=== PATIENT | female | born 1980 | race Caucasian/White ===

== ENCOUNTER 2017-12-04 17:45 | Inpatient (IN) | payer OTHER ==
[~2017-12-04] VITALS: Ht 165.1 cm; Wt 82.6 kg
--- NOTE | 2017-12-04 19:50 | ED GENERAL ADULT ---
See Addendum History of Present Illness General Chief Complaint: ETOH/Drug Related Complaint Stated Complaint: INTOXICATED Source: patient, family Exam Limitations: intoxication Vital Signs & Intake/Output Vital Signs & Intake/Output Vital Signs Date Time Temp Pulse Resp B/P B/P Pulse O2 O2 Flow FiO2 Mean Ox Delivery Rate 12/05 1054 98.0 102 20 130/73 12/05 1014 98.0 98 20 110/68 12/05 1014 98.0 98 20 110/68 95 Room Air 12/05 0808 98.2 102 20 116/76 12/05 0808 98.2 102 20 116/76 95 Room Air 12/05 0620 97.7 94 16 102/69 93 Room Air 12/05 0600 97.7 94 16 102/66 12/05 0400 98.7 96 18 102/68 94 Room Air 12/05 0200 97.9 99 20 101/58 12/05 0200 97.9 99 18 101/58 96 Room Air 12/05 0000 98.0 95 18 110/64 04 0000 98.0 95 18 110/64 99 Room Air 12/04 2258 95 18 104/64 99 Room Air 12/04 1829 98.2 104 16 134/80 98 Room Air Room Air ED Intake and Output 12/05 0000 12/04 1200 Intake Total 0 Output Total Balance 0 Intake, Oral 0 Allergies Coded Allergies: amoxicillin (Severe, HIVES 12/04/17) clonidine (Severe, SHORTNESS OF BREATH 12/04/17) esomeprazole (From NEXIUM) (Severe, HIVES 12/04/17) ketorolac (From TORADOL) (Severe, HIVES 12/04/17) adhesive (RASH 12/04/17) dicyclomine (From BENTYL) (HIVES 12/04/17) codeine (NAUSEA 12/04/17) doxycycline (NAUSEA 12/04/17) Triage Note: PT TO TRIAGE FOR ALCOHOL DETOX, PT STATES HER LAST DRINK WAS 2 DAYS PRIOR. PT ALSO COMPLAINS OF PAIN TO LEFT RIBS AND WAS DX WITH RIB FRACTURES 2 DAYS PRIOR. DENIES SI/HI. Triage Nurses Notes Reviewed? yes : No Patient currently breastfeeds: No HPI: 37 yo woman h/o alcohol abuse disorder h/o left rib injury after a fall 4-5 days ago, presents seeking etoh detox and also with continued left rib cage pain. She notes that she drinks a pint a day, has relapsed in recent weeks, had a seizure in jul 2016 per her father. Per her father, "She was watching the neighbor's dog... and that's where she was sneaking alcohol." She notes that she fell 4-5 days ago, landed on her left side, went to [facility], where she had ct scans. "They didn't tell me much." She was discharged with ativan. She notes continued pain and bruising on the left side of her ribs and left abdomen. She notes no chest pain, diarrhea, chills, dyspnea, diarrhea. She notes intermittent nausea and vomiting. "I haven't drunk anything in days. (Ambrose SOSA,Rafael Man) Past History Travel History Traveled to [place] past 21 day No Medical History Any Pertinent Medical History? 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 No (Ambrose SOSA,Rafael Man) Review of Systems Review of Systems Constitutional: Reports: no symptoms. EENTM: Reports: no symptoms. Respiratory: Reports: no symptoms. Cardiovascular: Reports: no symptoms. GI: Reports: no symptoms. Genitourinary: Reports: no symptoms. Musculoskeletal: Reports: no symptoms. Skin: Reports: no symptoms. Neurological/Psychological: Reports: no symptoms. Hematologic/Endocrine: Reports: no symptoms. Immunologic/Allergic: Reports: no symptoms. All Other Systems: Reviewed and Negative (Ambrose SOSA,Rafael Man) Physical Exam Physical Exam General Appearance: well developed/nourished, mild distress Head: atraumatic, normal appearance Eyes: Bilateral: normal appearance. Ears, Nose, Throat: normal pharynx, normal ENT inspection Neck: normal inspection Respiratory: normal breath sounds, left sided chest wall tenderness with mild ecchymosis, no crepitus. Cardiovascular: regular rate/rhythm Gastrointestinal: left sided mild tenderness to palpation with bruising. no rebound. no guarding. Back: normal inspection, normal range of motion Extremities: normal inspection, normal capillary refill Neurologic/Psych: no motor/sensory deficits, awake, alert, oriented x 3 Skin: intact, normal color, warm/dry Core Measures ACS in differential dx? No CVA/TIA Diagnosis: No Sepsis Present: No Sepsis Focused Exam Completed? No (Ambrose SOSA,Rafael Man) Progress Differential Diagnoses I considered the following diagnoses in my evaluation of the patient: left sided rib injury vs fx vs splenic injury also with alcohol intoxication vs detox. Plan of Care: Orders Procedure Date/time Status Regular Diet 12/05 B Active Pathway - chart 12/05 0810 Active CASE MANAGEMENT CONSULT 12/04 2346 Active CIWA 12/04 234 Active Add-on Test (ER Only) 12/04 2158 Active HUMAN BETA HCG SCREEN 12/05 2119 Complete CASE MANAGEMENT CONSULT 12/04 1950 Active URINE DRUG SCREEN FOR ER ONLY 12/04 1950 Complete LIPASE 12/04 1950 Complete HEPATIC FUNCTION PANEL 12/04 1950 Complete ETHANOL 12/04 1950 Complete CBC WITHOUT DIFFERENTIAL 12/04 1950 Complete BASIC METABOLIC PANEL 12/04 1950 Complete AMYLASE 12/04 1950 Complete EKG 12/04 1950 Active Current Medications Sig/Jarret Start time Last Medication Dose Stop Time Status Admin Lorazepam 2 MG Q2P PRN 12/05 0815 UNVr (Ativan) Lorazepam 1 MG Q2P PRN 12/05 0815 UNVr 12/05 (Ativan) 1055 Gabapentin 300 MG Q8 12/05 0600 UNVr 12/05 (Neurontin) 0600 Acetaminophen 650 MG Q4P PRN 12/04 2345 AC (Tylenol) Ondansetron HCl 4 MG Q4P PRN 12/04 2345 AC (Zofran) Promethazine HCl 25 MG ONCE ONE 12/04 2100 CAN (Phenergen) 12/04 210 Laboratory Tests 12/05/17 0102: Urine Opiates Screen 123, Methadone Screen 67, Barbiturate Screen < 60, Ur Phencyclidine Scrn < 6.00, Amphetamines Screen < 100, U Benzodiazepines Scrn > 800 H, Urine Cocaine Screen 55, Urine Cannabis Screen < 5.00 12/04/172158: Total Beta HCG Cancelled 12/04/172119: Anion Gap 19 H, Estimated GFR > 60, BUN/Creatinine Ratio 16.3, Glucose 75, Calcium 8.6, Total Bilirubin 0.6, Direct Bilirubin 0.5 H, AST 138 H, ALT 172 H, Alkaline Phosphatase 253 H, Total Protein 6.8, Albumin 4.2, Amylase 65, Lipase 133, Total Beta HCG NEGATIVE, CBC w Diff NO MAN DIFF REQ, RBC 4.74, MCV 91.8, MCH 30.1, MCHC 32.8 L, RDW 17.7 H, MPV 8.0, Gran % 55.0, Lymphocytes % 40.5, Monocytes % 3.5, Eosinophils % 0.6, Basophils % 0.4, Absolute Granulocytes 3.7, Absolute Lymphocytes 2.8, Absolute Monocytes 0.2, Absolute Eosinophils 0, Absolute Basophils 0, Serum Alcohol 251.0 12/04/172108: Total Beta HCG Cancelled Diagnostic Imaging: Viewed by Me: CT Scan. Discussed w/RAD: CT Scan. Radiology Impression: PATIENT: MARGARET MAYEN PRESENT AGE: 37 PATIENT ACCOUNT NO: [id number] : 79 LOCATION: [facility] ORDERING PHYSICIAN: Rafael Boggs MD SERVICE DATE: 12/04/17 EXAM TYPE: CAT - CT CERV SPINE WO IV CONTRAST; CT HEAD WO IV CONTRAST EXAMINATION: NONCONTRAST HEAD CT NONCONTRAST CERVICAL SPINE CT INDICATION INFORMATION: Head injury COMPARISON: None TECHNIQUE: Separate noncontrast CT examinations of the head and cervical spine were performed. Coronal and sagittal images were created for each examination at the technologist workstation. DLP: 903 mGy-cm FINDINGS: Head: There is no evidence of acute intracranial hemorrhage or territorial infarction. No abnormal mass effect or midline shift is seen. Herron to white matter differentiation is well preserved. No extra-axial fluid collections are identified. No hydrocephalus. No significant volume loss. There is no abnormal attenuation within the brain parenchyma. The osseous structures and soft tissues are normal. The mastoid air cells and visualized portions of the paranasal sinuses are well aerated. Cervical spine: Stranding of the normal cervical lordosis. There is otherwise anatomic alignment of the vertebral bodies and posterior elements. The atlantoaxial and atlantooccipital articulations are intact. Vertebral body heights and intervertebral disc spaces are maintained. No evidence of acute fracture. No prevertebral soft tissue swelling. Visualized portions of the lung apices are unremarkable. The thyroid gland is unremarkable. IMPRESSION: 1. No acute intracranial findings. 2. No acute fracture or malalignment of the cervical spine. DICTATED BY: Freddy Owen MD DATE/TIME DICTATED:12/04/172301 INSURANCE FOLLOW UP SPECIALIST:RAJI DATE/TIME TRANSCRIBED:2301 CONFIDENTIAL, DO NOT COPY WITHOUT APPROPRIATE AUTHORIZATION. < Electronically signed in Other Vendor System> SIGNED BY: Freddy Owen MD 12/04/170, PATIENT: MARGARET MAYEN PRESENT AGE: 37 PATIENT ACCOUNT NO: [id number] : 79 LOCATION: [facility] ORDERING PHYSICIAN: Rafael Boggs MD SERVICE DATE: 12/04/17 EXAM TYPE: CAT - CT ABD & PELVIS W IV CONTRAST; CT CHEST W IV CONTRAST EXAMINATION: CT CHEST, ABDOMEN AND PELVIS WITH CONTRAST CLINICAL INFORMATION: Injury. Left rib pain. COMPARISON: None. TECHNIQUE: Multidetector volumetric CT imaging of the chest, abdomen and pelvis was obtained after the administration of 50 mL of intravenous Ultravist without immediate adverse reactions. DLP: 744.74 mGy-cm. FINDINGS: CT CHEST: Lungs: The lungs are clear with no evidence of inflammation or nodules. Mediastinum: The mediastinum is normal. Pleura: There is no pleural effusion. No pleural mass or thickening. Axilla: No lymphadenopathy. CT ABDOMEN AND PELVIS: LIVER, GALLBLADDER, AND BILIARY TREE: There is diffuse fatty change of liver. There is no focal liver lesion or intrahepatic bile duct dilatation. Status post cholecystectomy. PANCREAS: No acute change of the pancreas. No mass. No pancreatic duct dilatation. SPLEEN: Spleen normal in size and contour. No focal lesion. ADRENAL GLANDS: Adrenal glands are normal in size. No focal mass. KIDNEYS AND URETERS: The kidneys are normal in size, shape, and attenuation. No hydronephrosis, hydroureter, or calculi seen. No perinephric stranding. BLADDER: Unremarkable. GASTROINTESTINAL TRACT: Status post gastric surgery. Status post appendectomy. No acute change of the bowel. No bowel obstruction. No bowel wall thickening or edema. Moderate volume of stool throughout the colon. The small bowel loops are normal. MESENTERY: No focal inflammation. No free fluid. No free air. ABDOMINAL WALL: Small fat-containing umbilical hernia. There is subcutaneous air in the left flank, axial image 77 (2). There is no radiopaque foreign body. LYMPH NODES: Normal. VASCULAR: Is atherosclerotic vascular calcifications of aorta and iliac vessels without aneurysm. PELVIC VISCERA: Unremarkable. OSSEOUS STRUCTURES: No fracture. Chest wall abdominal wall is unremarkable. IMPRESSION: There is a collection of subcutaneous air at the left flank. There is no rib fracture. No acute abnormality of the chest, abdomen or pelvis. DICTATED BY: Marky Stevens MD DATE/TIME DICTATED:12/04/172302 INSURANCE FOLLOW UP SPECIALIST:RAJI DATE/TIME TRANSCRIBED:12/04/172302 CONFIDENTIAL, DO NOT COPY WITHOUT APPROPRIATE AUTHORIZATION. <Electronically signed in Other Vendor System> SIGNED BY: Marky Stevens MD 12/04/17 7100 Initial ED EKG: sinus tach, no acute changes Hand-Off Endorsed To: Figueroa Iraheta MD Endorsed Time: 0700 Pending: consult, labs (Ambrose SOSA,Rafael Man) Comments: 12/05/2017 8:08:59 AM patient signed out to me by Dr. Boggs at shift change management consultant. Patient had a documented CIWA score of 8 and not only has a history of withdrawal seizures but also show signs of alcoholic hepatitis. I Feel the patient now requires admission for alcohol withdrawal treatment. 12/05/2017 11:27:26 AM Patient signed out to Dr. Rivera. Insurance preauthorization pending. (Myrtle SOSA,Figueroa Perales) Departure Departure Disposition: STILL A PATIENT Condition: Stable Referrals: Patient Has No Primary Care Dr (PCP/Family) Departure Forms: Customer Survey General Discharge Information Comments 12/05/17, 0:10... pt resting comfortably... no acute internal injuries on ct scan.... pt to be evaluated by case management in AM. (Ambrose SOSA,Rafael Man) Departure Clinical Impression Primary Impression: Alcohol withdrawal syndrome Secondary Impressions: Alcohol intoxication Qualifiers: Complication of substance-induced condition: uncomplicated Qualified Code: F10.920 - Alcohol use, unspecified with intoxication, uncomplicated Alcoholism Contusion Qualifiers: Encounter type: initial encounter Rib injury (Myrtle SOSA,Figueroa Perales) Departure Comments 12/05/17 The patient was signed out to me by Dr. Iraheta. She is pending case management approval for admission for alcohol detox. (Figueroa Rivera DO) Critical Care Note Critical Care Note Critical Care Time: non-applicable (Ambrose SOSA,Rafael Man)
[2017-12-04 21:30] LABS: ABSOLUTE BASOPHIL COUNT 0 /CUMM (0.0-0.2); ABSOLUTE EOSINOPHIL COUNT 0 /CUMM (0.0-0.7); ABSOLUTE GRANULOCYTE CT 3.7 /CUMM (1.4-6.5); ABSOLUTE LYMPH COUNT 2.8 /CUMM (1.2-3.4); ABSOLUTE MONOCYTE COUNT 0.2 /CUMM (0.10-0.60); BASOPHIL % 0.4 % (0.0-2.0); EOSINOPHIL % 0.6 % (0-5); HEMATOCRIT 43.5 % (37-47); MEAN CORPUSCULAR HGB 30.1 PG (27.0-31.0); MEAN CORPUSCULAR HGB CONC 32.8 G/DL (33.0-37.0); MEAN CORPUSCULAR VOLUME 91.8 FL (81.0-99.0); PLATELET COUNT 153 /CUMM (130-400); RBC DISTRIBUTION WIDTH 17.7 % (11.5-14.5); RED BLOOD CELL CT 4.74 /CUMM (4.20-5.40); WHITE BLOOD CELL COUNT 6.8 /CUMM (4.8-10.8)
--- NOTE | 2017-12-04 23:10 | CT SCAN REPORT ---
EXAMINATION: NONCONTRAST HEAD CT NONCONTRAST CERVICAL SPINE CT INDICATION INFORMATION: Head injury COMPARISON: None TECHNIQUE: Separate noncontrast CT examinations of the head and cervical spine were performed. Coronal and sagittal images were created for each examination at the technologist workstation. DLP: 903 mGy-cm FINDINGS: Head: There is no evidence of acute intracranial hemorrhage or territorial infarction. No abnormal mass effect or midline shift is seen. Herron to white matter differentiation is well preserved. No extra-axial fluid collections are identified. No hydrocephalus. No significant volume loss. There is no abnormal attenuation within the brain parenchyma. The osseous structures and soft tissues are normal. The mastoid air cells and visualized portions of the paranasal sinuses are well aerated. Cervical spine: Stranding of the normal cervical lordosis. There is otherwise anatomic alignment of the vertebral bodies and posterior elements. The atlantoaxial and atlantooccipital articulations are intact. Vertebral body heights and intervertebral disc spaces are maintained. No evidence of acute fracture. No prevertebral soft tissue swelling. Visualized portions of the lung apices are unremarkable. The thyroid gland is unremarkable. IMPRESSION: 1. No acute intracranial findings. 2. No acute fracture or malalignment of the cervical spine.
--- NOTE | 2017-12-04 23:15 | CT SCAN REPORT ---
EXAMINATION: CT CHEST, ABDOMEN AND PELVIS WITH CONTRAST CLINICAL INFORMATION: Injury. Left rib pain. COMPARISON: None. TECHNIQUE: Multidetector volumetric CT imaging of the chest, abdomen and pelvis was obtained after the administration of 50 mL of intravenous Ultravist without immediate adverse reactions. DLP: 744.74 mGy-cm. FINDINGS: CT CHEST: Lungs: The lungs are clear with no evidence of inflammation or nodules. Mediastinum: The mediastinum is normal. Pleura: There is no pleural effusion. No pleural mass or thickening. Axilla: No lymphadenopathy. CT ABDOMEN AND PELVIS: LIVER, GALLBLADDER, AND BILIARY TREE: There is diffuse fatty change of liver. There is no focal liver lesion or intrahepatic bile duct dilatation. Status post cholecystectomy. PANCREAS: No acute change of the pancreas. No mass. No pancreatic duct dilatation. SPLEEN: Spleen normal in size and contour. No focal lesion. ADRENAL GLANDS: Adrenal glands are normal in size. No focal mass. KIDNEYS AND URETERS: The kidneys are normal in size, shape, and attenuation. No hydronephrosis, hydroureter, or calculi seen. No perinephric stranding. BLADDER: Unremarkable. GASTROINTESTINAL TRACT: Status post gastric surgery. Status post appendectomy. No acute change of the bowel. No bowel obstruction. No bowel wall thickening or edema. Moderate volume of stool throughout the colon. The small bowel loops are normal. MESENTERY: No focal inflammation. No free fluid. No free air. ABDOMINAL WALL: Small fat-containing umbilical hernia. There is subcutaneous air in the left flank, axial image 77 (2). There is no radiopaque foreign body. LYMPH NODES: Normal. VASCULAR: Is atherosclerotic vascular calcifications of aorta and iliac vessels without aneurysm. PELVIC VISCERA: Unremarkable. OSSEOUS STRUCTURES: No fracture. Chest wall abdominal wall is unremarkable. IMPRESSION: There is a collection of subcutaneous air at the left flank. There is no rib fracture. No acute abnormality of the chest, abdomen or pelvis.
[2017-12-05] VITALS (13 sets, daily range): BP systolic 101–139; BP diastolic 58–92
--- NOTE | 2017-12-05 14:52 | History & Physical ---
Marco Larry MD,[facility] 12/05/17 1452: General Information and HPI MD Statement: I have seen and personally examined MARGARET MAYEN and documented this H&P. The patient is a 37 year old F who presented with a patient stated chief complaint of [alcohol detox]. Source of Information: patient, old records History of Present Illness: Patient is 37 yo F with PMH of alchohol abuse, alcohol related seizure, bronchitis, SVT, GERD, Mary Lou's thyroiditis, adrenal insufficiency, gastric bypass surgery presented to the ED for alcohol detox. Patient noted that she increased the amount of alcohol intact since 6 years ago. She stopped to drink about 4.5 months ago till last week that after some stressors in life, she found a bottle of favorite alcohol at home and restarted drinking alcohol. Last drink was yesterday morning and was 0.5 pint of alcohol. She usually drinks 4-5 pints of vodka daily. Her last detox was 1m ago in [facility], she also reported 10-12 episodes of seizure related to alcohol in the last 6 years. She also noted she fill full days ago when she was drunk, she had bruising all over the body, as admitted to [facility] for ribs fracture, but was then shown discharged on PO ativan since they had no alcohol detox program. Patient also reported to have several endocrine organ insufficiencies, diagnosed in 2016 after being admitted to [facility]. She follows with Dr. Sanchez (in [place]) and was recommended to follow with a Block Hacker. Allergies/Medications Allergies: Coded Allergies: amoxicillin (Severe, HIVES 12/04/17) clonidine (Severe, SHORTNESS OF BREATH 12/04/17) esomeprazole (From NEXIUM) (Severe, HIVES 12/04/17) ketorolac (From TORADOL) (Severe, HIVES 12/04/17) adhesive (RASH 12/04/17) dicyclomine (From BENTYL) (HIVES 12/04/17) codeine (NAUSEA 12/04/17) doxycycline (NAUSEA 12/04/17) Home Med list Albuterol Sulfate (Proventil Hfa) 90 MCG HFA.AER.AD 2 PUF INH Q4 PRN BREATHING (Reported) Codeine Phosphate/Guaifenesi (Guaifenesin AC Cough Syrup) 10 MG-100 MG/5 ML LIQUID 1 TSP PO 4XW COUGH (Reported) Lamotrigine (Lamotrigine Odt) 100 MG TAB.RAPDIS 1 TAB PO QHS MENTAL (Reported ) Lansoprazole (Prevacid) 30 MG CAPSULE.DR 1 CAP PO DAILY GERD (Reported) Levothyroxine Sodium 75 MCG TABLET 1 TAB PO DAILY THYROID (Reported) Montelukast Sodium 10 MG TABLET 1 TAB PO DAILY ASTHMA (Reported) Prednisone 10 MG TABLET 1 TAB PO DAILY ADRENAL (Reported) Quetiapine Fumarate (Seroquel) 100 MG TABLET 1 TAB PO QPM MENTAL HEALTH ( Reported) Tamsulosin HCl (Flomax) 0.4 MG CAP.ER.24H 1 CAP PO DAILY KIDNEY (Reported) Trazodone HCl 50 MG TABLET 1 TAB PO QPM INSOMNIA (Reported) Past History Travel History Traveled to [place] past 21 day No Medical History Neurological: NONE EENT: NONE Cardiovascular: SVT Respiratory: bronchitis Gastrointestinal: GERD Hepatic: NONE Renal: NONE Musculoskeletal: FX RIBS TO LEFT SIDE Psychiatric: alcohol dependence Endocrine: Mary Lou's thyroiditis, 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 Exam & Diagnostic Data Last 24 Hrs of Vital Signs/I&O Vital Signs Date Time Temp Pulse Resp B/P B/P Pulse O2 O2 Flow FiO2 Mean Ox Delivery Rate 12/05 1312 98.7 117 20 139/92 95 Room Air 12/05 1311 98.7 117 20 139/92 12/05 1054 98.0 102 20 130/73 12/05 1014 98.0 98 20 110/68 12/05 1014 98.0 98 20 110/68 95 Room Air 12/05 0808 98.2 102 20 116/76 12/05 0808 98.2 102 20 116/76 95 Room Air 12/05 0620 97.7 94 16 102/69 93 Room Air 12/05 0600 97.7 94 16 102/66 12/05 0400 98.7 96 18 102/68 94 Room Air 12/05 0200 97.9 99 20 101/58 12/05 0200 97.9 99 18 101/58 96 Room Air 04/17 0000 98.0 95 18 110/64 12/05 0000 98.0 95 18 110/64 99 Room Air 12/04 2258 95 18 104/64 99 Room Air 12/04 1829 98.2 104 16 134/80 98 Room Air Room Air Intake & Output 12/05 1600 12/05 0800 12/05 0000 Intake Total 600 0 Output Total Balance 600 0 Intake, IV 600 Intake, Oral 0 Physical Exam General Appearance Alert, Oriented X3, No Acute Distress, anxious Skin bruise over left chest wall Skin Temp/Moisture Exam: Warm/Dry Sepsis Skin Exam (color): Normal for Ethnicity HEENT Atraumatic Cardiovascular Normal S1, Normal S2 Abdomen Soft, No Tenderness Neurological tremor bilateral LE 4-5/5, Unstable gait, takes few steps, finger to nose normal Extremities No Edema Last 24 Hrs of Labs/Charbel: Laboratory Tests 12/05/17 0102: Urine Opiates Screen 123, Methadone Screen 67, Barbiturate Screen < 60, Ur Phencyclidine Scrn < 6.00, Amphetamines Screen < 100, U Benzodiazepines Scrn > 800 H, Urine Cocaine Screen 55, Urine Cannabis Screen < 5.00 12/04/179: Total Beta HCG Cancelled 12/04/170: Anion Gap 19 H, Estimated GFR > 60, BUN/Creatinine Ratio 16.3, Glucose 75, Calcium 8.6, Total Bilirubin 0.6, Direct Bilirubin 0.5 H, AST 138 H, ALT 172 H, Alkaline Phosphatase 253 H, Total Protein 6.8, Albumin 4.2, Amylase 65, Lipase 133, Total Beta HCG NEGATIVE, CBC w Diff NO MAN DIFF REQ, RBC 4.74, MCV 91.8, MCH 30.1, MCHC 32.8 L, RDW 17.7 H, MPV 8.0, Gran % 55.0, Lymphocytes % 40.5, Monocytes % 3.5, Eosinophils % 0.6, Basophils % 0.4, Absolute Granulocytes 3.7, Absolute Lymphocytes 2.8, Absolute Monocytes 0.2, Absolute Eosinophils 0, Absolute Basophils 0, Serum Alcohol 251.0 12/04/172108: Total Beta HCG Cancelled Assessment/Plan Assessment: Patient is 37 yo F presented for alcohol detox PMH: alchohol abuse, alcohol related seizure, bronchitis, SVT, GERD, Mary Lou's thyroiditis, adrenal insufficiency, gastric bypass surgery presented to the ED for alcohol detox. VS, Ph Ex at admission: insignificant Labs at admission: CBC insignificant, bicarb 17, AG 19, AST 138, AST 172, Alkp 253, Bdz 800, serum alcohol 251 Imagings at admission: Head CT: 1. No acute intracranial findings. 2. No acute fracture or malalignment of the cervical spine. Chest and pelvic CT: There is a collection of subcutaneous air at the left flank. There is no rib fracture. No acute abnormality of the chest, abdomen or pelvis. Patient was admitted to telemetry floor for management of following conditions: Alcohol detox Patient will be admitted to general medicine floor. -Admit to general medicine floor -CIWA protocol -Banana bag, multivitamin, thiamin -LR 125 ml/h - Ativan 2mg q4 - ativan IN PRN Transmitis Not consistant with alcohol - hepatitis panel - RUQ US Chronic medical problems: we will continiue home medication - get records from Dr Sanchez, new accounts banking representative -Get records from PCP -Continue home medication FC Diet regular DVT PPX: alps and heparin As Ranked By This Provider Problem List: 1. Alcohol intoxication Qualifiers Complication of substance-induced condition: uncomplicated Qualified Code: F10.920 - Alcohol use, unspecified with intoxication, uncomplicated 2. Alcohol withdrawal syndrome Core Measures/Misc (05/07) Acute Coronary Syndrome ACS Diagnosis: No Congestive Heart Failure Congestive Heart Failure Diagnosis No Cerebrovascular Accident CVA/TIA Diagnosis: No VTE (View Protocol) VTE Risk Factors Immobility No Mechanical VTE Prophylaxis d/t N/A MechProphylax Ordered No VTE Pharm Prophylaxis d/t NA PharmProphylax ordered Sepsis (View protocol) Sepsis Present: No Nj Marte MD 12/05/17 1638: Attending MD Review Statement Attending Statement Attending MD Statement: examined this patient, discuss w/resident/PA/CEMENT FINISHING SUPERVISOR, agreed w/resident/PA/CEMENT FINISHING SUPERVISOR, reviewed EMR data (avail), discussed with nursing, discussed with case mgmt, amended to note Attending Assessment/Plan: Patient seen and examined. Medical history as noted above. She presented to the emergency room voluntarily for alcohol detoxification. While being monitored in the emergency room she developed alcohol withdrawal symptoms for which she is being admitted for further management. She complains of being anxious. Denies any pain. Denies any nausea vomiting at present. She reports that she has not voided since being in the emergency room yesterday. Denies abdominal pain. On examination she is alert oriented 3. She is mildly anxious. She is mildly tremulous. She does have a bruising in the left upper quadrant of the abdomen. No tenderness. Bowel sounds are normal. She has no peripheral edema. Laboratory data noted. She does have transaminitis however pattern is not consistent with alcoholic hepatitis. Problems: 1. Alcohol withdrawal syndrome 2. Transaminitis 3. History of adrenal insufficiency. Plan: -Admit to inpatient General medical service. -Hydrate with lactated Ringer's at 1.5 cc an hour. -Repeat serum chemistry to monitor potassium and magnesium level tomorrow. -Repeat CBCs in a.m. if there is a change in her clinical status. -Check viral hepatitis panel and obtain right upper quadrant sonogram. -Continue her chronic steroid regimen. Will hold off administer stress dose for now. -DVT prophylaxis. Lucas Gerber 12/06/17 0659: Resident Review Statement Resident Statement: examined this patient, discussed with internet webmaster, agreed with internet webmaster, discussed with family, reviewed EMR data (avail), reviewed images, amended to note Other Findings: 37 year old woman here for alcohol detox. Admit to general medicine floor. ALT greater than AST, findings not consistent with alcoholic hepatitis, but definitely in line with nonalcoholic steatotic hepatitis. Findings confirmed with ultrasound abdomen. Check viral hepatitis panel. For alcohol detox, and Ativan [id number] and when necessary per CIWA. Social work consult. Gentle fluid hydration. Continue low-dose steroids for adrenal insufficiency, see close hemodynamic monitoring. Please confirm dose of her steroids (hydrocortisone). Lovenox for DVT prophylaxis. Heart healthy diet. Full code.
--- NOTE | 2017-12-05 16:21 | Admission Certification ---
Admission Certification Certification Statement - As attending physician, I certify that at the time of - admission, based on clinical presentation, severity of - symptoms, need for further diagnostic testing and - therapeutic interventions, and risk of adverse outcomes - without in-hospital treatment, in my clinical assessment, - this patient requires an acute hospital stay for a minimum - of two nights or longer. I have also considered psychsocial - factors such as support system, advanced age, financial - issues, cognitive issues, and failed out-patient treatments, - past re-admission history, safety of patient, and lack of - compliance as applicable. Specific rationale supporting this admission is: Patient requires hospitalization for management of her alcohol withdrawal symptoms.
[2017-12-05] MEDS ORDERED: MONTELUKAST SOD10 M1 PO (17:24)
[2017-12-05] MEDS ORDERED: TRAZODONE HCL50 M1 PO (17:25)
[2017-12-05] MEDS ORDERED: SEROQUEL100 M1 PO (17:25)
[2017-12-05] MEDS ORDERED: GUAIFENESIN AC473 M2 PO (17:26)
[2017-12-05] MEDS ORDERED: PREDNISONE10 M2 PO (17:27)
[2017-12-05] MEDS ORDERED: PROVENTIL HFA6.7 GM INH (17:28)
[2017-12-05] MEDS ORDERED: PREVACID30 M1 PO (17:28)
[2017-12-05] MEDS ORDERED: LAMOTRIGINE OD100 MG PO (17:29)
[2017-12-05] MEDS ORDERED: FLOMAX0.4 M1 PO (17:29)
[2017-12-05] MEDS ORDERED: LEVOTHYROXINE75 MCG PO (17:30)
--- NOTE | 2017-12-05 21:07 | ULTRASOUND REPORT ---
EXAMINATION: US ABDOMEN LIMITED CLINICAL INFORMATION: Increased LFTs.. COMPARISON: CT abdomen 12/04/2017 TECHNIQUE: Real-time imaging of the right upper quadrant abdominal viscera. Color Doppler exam used. FINDINGS: Bowel gas limits study. PANCREAS: Obscured by bowel gas LIVER: There is diffuse increased echogenicity of liver parenchyma due to fatty change. No focal liver lesion. No intrahepatic bile duct dilatation. Right lobe liver measures 16.5 cm GALLBLADDER: Status post cholecystectomy COMMON BILE DUCT: Normal in caliber measuring 0.4 cm in diameter. RIGHT KIDNEY: Normal. No hydronephrosis. No renal calculi or focal parenchymal lesions. The kidney measures 8.8 cm in maximum dimension. FREE FLUID: None. IMPRESSION: 1. Diffuse fatty change of liver. 2. Status post cholecystectomy. No bile duct dilatation.
[2017-12-06] VITALS (11 sets, daily range): BP systolic 110–138; BP diastolic 66–83
--- NOTE | 2017-12-06 07:25 | PN- Housestaff ---
Marco Larry MD,[facility] 12/06/17 0725: Subjective Follow-up For: Alcohol detox Subjective: Patient visited today, was lying in bed in no mild distress, was alert and oriented. reported she was not able to sleep last night. Reported to be anxious. No fever or chills, no shortness of breathing, no chest pain, but reported left flank pain, no other events. CIWA 0-4, recieved 2 doses of IV ativan. Planned to increase the dose of standing dose ativan to 2mg q4. Patient also reported bloody stool, we will get occult blood. Lidoderm patch for chest,flank pain. incentive spirometry. Review of Systems Constitutional: Reports: see HPI. Objective Last 24 Hrs of Vital Signs/I&O Vital Signs Date Time Temp Pulse Resp B/P B/P Pulse O2 O2 Flow FiO2 Mean Ox Delivery Rate 12/06 1322 Room Air Room Air 12/06 1134 98.0 95 18 130/82 96 12/06 0931 82 102/74 12/06 0624 98.2 101 20 110/70 95 Room Air 12/06 0400 98.1 100 18 110/74 12/06 0206 98.1 100 18 110/74 93 Room Air 12/06 0200 98.1 100 18 110/74 12/05 2355 98.5 96 20 118/80 12/05 2205 98.5 96 20 118/80 94 Room Air 12/05 2200 98.5 96 20 118/80 12/05 1849 98.8 100 20 112/60 95 Room Air 12/05 1805 97.9 102 18 132/82 12/05 1758 97.9 102 18 132/82 98 Room Air 12/05 1614 98.4 98 20 125/82 12/05 1609 98.4 98 20 125/82 99 Room Air Intake & Output 12/06 1600 12/06 0800 12/06 0000 Intake Total 720 1440 810 Output Total 800 350 Balance -80 1090 810 Intake, IV 1200 450 Intake, Oral 720 240 360 Output, Urine 800 350 Patient 182 lb Weight Weight Bed scale Measurement Method Physical Exam General Appearance: Alert, Oriented X3, Cooperative, Moderate Distress Skin: bruise over left flank Skin Temp/Moisture Exam: Warm/Dry HEENT: Atraumatic, EOMI Cardiovascular: Normal S1, Normal S2 Lungs: Normal Air Movement Abdomen: Soft, No Tenderness Neurological: mild tremor Extremities: No Edema Current Medications: Current Medications Sig/Jarret Start time Last Medication Dose Route Stop Time Status Admin Acetaminophen 650 MG Q4P PRN 12/04 2345 DC PO Albuterol Sulfate 2 PUF Q4P PRN 12/05 1730 AC INH Cyanocobalamin/ 1 BAG DAILY 12/06 0900 CAN Thiamine/Pyridoxine IV 12/08 1659 Dextrose/Water 1,000 ML Enoxaparin Sodium 40 MG DAILY 12/06 0900 AC 12/06 SC 0932 Folic Acid 1 MG DAILY 12/06 0900 AC 12/06 PO 0931 Gabapentin 0 .STK-MED ONE 12/05 1445 DC PO Gabapentin 300 MG Q8 12/05 0600 AC 12/06 PO 0600 Guaifenesin/Codeine 5 ML ONCE ONE 12/05 2014 DC 12/05 Phosphate PO 12/06 2015 205 Guaifenesin/Codeine 5 ML .[4XW] 12/05 1730 DC Phosphate PO Lactated Ringer's 1,000 ML Q6H 12/05 1745 DC 12/06 IV 12/06 0544 0300 Lamotrigine 100 MG AT BEDTIME 12/05 2100 AC PO Levothyroxine Sodium 0.075 MG DAILY AC 12/06 0700 AC 12/06 PO 0600 Lidocaine 1 PAT DAILY 12/06 1015 AC 12/06 EXT 1102 Lorazepam 2 MG Q2P PRN 12/06 1130 AC IV Lorazepam 1 MG Q2P PRN 12/06 1130 AC IV Lorazepam 2 MG Q4 12/06 1000 AC 12/06 PO 0932 Lorazepam 2 MG Q6 12/06 0600 DC 12/06 PO 0600 Lorazepam 0 .STK-MED ONE 12/05 1814 DC .ROUTE Lorazepam 2 MG Q6 12/05 1800 DC 12/06 PO 12/06 0001 0014 Lorazepam 2 MG Q2P PRN 12/05 1730 CAN PO Lorazepam 1 MG Q2P PRN 12/05 1730 DC PO Lorazepam 0 .STK-MED ONE 12/05 1623 DC .ROUTE Lorazepam 2 MG Q2P PRN 12/05 0815 DC 12/06 IV 1102 Lorazepam 1 MG Q2P PRN 12/05 0815 DC 12/05 IV 2111 Montelukast Sodium 10 MG AT BEDTIME 12/05 2099 AC 12/05 PO 2010 Multivitamins 1 TAB DAILY 12/06 0900 AC 12/06 PO 09 Omeprazole 20 MG DAILY AC 12/06 1315 AC PO Ondansetron HCl 4 MG Q6 PRN 12/05 2115 AC 12/06 IV 1102 Ondansetron HCl 4 MG Q4P PRN 12/04 2345 DC PO Prednisone 10 MG DAILY 12/05 1730 AC 12/06 PO 930 Quetiapine Fumarate 100 MG QPM 12/05 2099 AC 12/05 PO 2010 Tamsulosin HCl 0.4 MG DAILY 12/05 1731 AC 12/06 PO 0931 Thiamine HCl 100 MG DAILY 12/06 0900 AC 12/06 PO 929 Trazodone HCl 50 MG QPM 12/05 2099 AC 12/05 PO 2010 Last 24 Hrs of Lab/Charbel Results Last 24 Hrs of Labs/Mics: Laboratory Tests 12/06/17 0845: Anion Gap 10, Estimated GFR > 60, BUN/Creatinine Ratio 15.0, Magnesium 1.6, CBC w Diff NO MAN DIFF REQ, RBC 3.55 L, MCV 92.8, MCH 31.1 H, MCHC 33.5, RDW 16.9 H, MPV 8.8, Gran % 62.6, Lymphocytes % 31.6, Monocytes % 4.8, Eosinophils % 0.2, Basophils % 0.8, Absolute Granulocytes 2.5, Absolute Lymphocytes 1.3, Absolute Monocytes 0.2, Absolute Eosinophils 0, Absolute Basophils 0 Assessment/Plan Assessment: Patient is 37 yo F presented for alcohol detox PMH: alchohol abuse, alcohol related seizure, bronchitis, SVT, GERD, Mary Lou's thyroiditis, adrenal insufficiency, gastric bypass surgery presented to the ED for alcohol detox. VS, Ph Ex at admission: insignificant Labs at admission: CBC insignificant, bicarb 17, AG 19, AST 138, AST 172, Alkp 253, Bdz 800, serum alcohol 251 Imagings at admission: Head CT: 1. No acute intracranial findings. 2. No acute fracture or malalignment of the cervical spine. Chest and pelvic CT: There is a collection of subcutaneous air at the left flank. There is no rib fracture. No acute abnormality of the chest, abdomen or pelvis. Patient was admitted to telemetry floor for management of following conditions: Alcohol detox Patient will be admitted to general medicine floor. -Admit to general medicine floor -CIWA protocol -Banana bag, multivitamin, thiamin -LR 125 ml/h - Ativan increased to 2mg q4 - ativan IN PRN per CIWA Transmitis most likely related to the alcohol, considering evaluations done - hepatitis panel negative - RUQ US: 1. Diffuse fatty change of liver. 2. Status post cholecystectomy. No bile duct dilatation. Chronic medical problems: we will continiue home medication - get records from Dr Sanchez, masonry contractor administrator -Get records from PCP -Continue home medication - lidoderm patch FC Diet regular DVT PPX: alps and heparin Problem List: 1. Alcoholism Pain Ratin Pain Location: abdomen, left flank Pain Goal: Pain 4 or less Pain Plan: added lidoderm patch Tomorrow's Labs & Rationales: CBC BEP Rosanna SOSA,Nj 12/06/17 1254: Attending MD Review Statement Attending Statement Attending MD Statement: examined this patient, discuss w/resident/PA/BAG TESTER, agreed w/resident/PA/BAG TESTER, reviewed EMR data (avail), discussed with nursing, discussed with case mgmt, amended to note Attending Assessment/Plan: Patient seen and examined. Lying in bed. Reported poor sleep. Complains of left flank pain. She is afebrile hemodynamically stable. CIWA scores remain elevated. On examination she is mildly anxious. Her viral hepatitis panel is negative. She had a drop in her hemoglobin level since admission. Problems 1. Alcohol withdrawal syndrome. 2. Left flank pain; patient reports history of rib fractures following recent fall. 3. History of adrenal insufficiency. Recommendations: -Patient still has elevated CIWA scores. Continue current dose of Ativan. - if she is improving tomorrow, may wean down her Ativan to 1.5 mg orally every 4 hours. -Decrease in her hemoglobin level may be secondary to hemodilution. Check stool guaiac. Repeat H&H tomorrow. -Patient reports left flank pain following fall prior to admission. She was evaluated prior at [facility] and reported to have left rib fracture. CT abdomen here shows no intra-abdominal process. It did not reveal subcutaneous air in the left flank. No rib fractures were noted on imaging. Recommend incentive spirometry. Recommend pain control with tramadol. -Continue chronic steroid therapy for adrenal insufficiency.
[2017-12-06 09:38] LABS: ABSOLUTE BASOPHIL COUNT 0 /CUMM (0.0-0.2); ABSOLUTE EOSINOPHIL COUNT 0 /CUMM (0.0-0.7); ABSOLUTE LYMPH COUNT 1.3 /CUMM (1.2-3.4); ABSOLUTE MONOCYTE COUNT 0.2 /CUMM (0.10-0.60); MEAN PLATELET VOLUME 8.8 FL (7.4-10.4)
[2017-12-06 10:03] LABS: ABSOLUTE GRANULOCYTE CT 2.5 /CUMM (1.4-6.5); BASOPHIL % 0.8 % (0.0-2.0); EOSINOPHIL % 0.2 % (0-5); GRANULOCYTE % 62.6 % (42.2-75.2); MEAN CORPUSCULAR HGB 31.1 PG (27.0-31.0); MEAN CORPUSCULAR HGB CONC 33.5 G/DL (33.0-37.0); MEAN CORPUSCULAR VOLUME 92.8 FL (81.0-99.0); PLATELET COUNT 87 /CUMM (130-400); RBC DISTRIBUTION WIDTH 16.9 % (11.5-14.5)
[2017-12-06 10:43] LABS: RED BLOOD CELL CT 3.55 /CUMM (4.20-5.40)
--- NOTE | 2017-12-06 17:31 | CT SCAN REPORT ---
CT HEAD WITHOUT CONTRAST CLINICAL INFORMATION: Head trauma to rule out intracranial pathology. COMPARISON: Head CT 12/04/2017. TECHNIQUE: Contiguous axial imaging was performed from the skull base to vertex without intravenous administration of contrast. FINDINGS: There is no intracranial hemorrhage, hydrocephalus, extra-axial surface collection, midline shift, or other herniation pattern. Herron to white matter differentiation is diffusely maintained without evidence of an evolved acute territorial infarct. The basilar cisterns are preserved. No significant soft tissue abnormality. No acute osseous abnormality. The paranasal sinuses and the mastoid air cells are well-aerated. IMPRESSION: No acute intracranial abnormality.
--- NOTE | 2017-12-06 21:08 | RADIOLOGY REPORT ---
EXAMINATION: XR RIBS, BILATERAL CLINICAL INFORMATION: History of recent rib fractures. Just fell out of bed COMPARISON: CT chest 12/04/2017. TECHNIQUE: Supine chest. 7 oblique views of the ribs. FINDINGS: Lungs are clear. No consolidation, pneumothorax, or pleural effusion. The cardiomediastinal silhouette and pulmonary vasculature are normal. There are surgical clips in the right upper quadrant of abdomen. There are surgical sutures in the upper central abdomen. Osseous structures are unremarkable. Ribs are intact. No fractures are identified. IMPRESSION: Unremarkable examination.
--- NOTE | 2017-12-06 21:46 | Event Note ---
Event Note Event Note: Around 9 pm I was informed by the nursing staff that patient is trying to leave the hospital. Upon arrival patient was crying and sitting on the egde of the bed complaining of left sided rib pain. She also reported of feeling that some people might hurt her. It should be noted that patient has hx of night terrors as well. Upon discussion with the patient, I have explaned the symptoms of alcohol withdrawal and how to manage it. Tramadol was d'stevie since it decreases the seizre treshold and she has hx of alcohol withdrawal seizures. pain will be controlled by low dose percocet/morphine PRN. patient will benefit from psychiatry evaluation.
[2017-12-07] VITALS (9 sets, daily range): BP systolic 100–124; BP diastolic 60–83
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
[2017-12-07 09:40] LABS: ABSOLUTE BASOPHIL COUNT 0 /CUMM (0.0-0.2); ABSOLUTE EOSINOPHIL COUNT 0.1 /CUMM (0.0-0.7); ABSOLUTE LYMPH COUNT 2.6 /CUMM (1.2-3.4); ABSOLUTE MONOCYTE COUNT 0.2 /CUMM (0.10-0.60); BASOPHIL % 0.2 % (0.0-2.0); EOSINOPHIL % 1.1 % (0-5); GRANULOCYTE % 40.8 % (42.2-75.2); HEMATOCRIT 33.3 % (37-47); MEAN CORPUSCULAR HGB 32.1 PG (27.0-31.0); MEAN CORPUSCULAR HGB CONC 34.2 G/DL (33.0-37.0); MEAN CORPUSCULAR VOLUME 93.7 FL (81.0-99.0); PLATELET COUNT 85 /CUMM (130-400); RBC DISTRIBUTION WIDTH 16.9 % (11.5-14.5); RED BLOOD CELL CT 3.55 /CUMM (4.20-5.40); WHITE BLOOD CELL COUNT 4.9 /CUMM (4.8-10.8)
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
--- NOTE | 2017-12-07 13:55 | Incdntl Nt Psy ---
Incidental Note Notation: The patient was seen briefly; anticipate complete interview on 12/08/17. The patient is uncomfortable, lying in bed, due to rib pain and difficult alcohol withdrawal. Hx of seizures, 14 total, including 5 she can relate to alcohol withdrawal, the rest were grand mal with unknown etiology. She reports history of two other ETOH dtox, one of which may have been with DTs, requiring ICU stay. Alert, oriented to person, place, month, year, not day. Endorses visual hallucinations, seeing people come and go. Denies tactile of auditory hallucinations. She becomes panicky when "people surround me, and I want to bum koehler them" possibly refering to rounds. Denies SI. Hx PTSD with nightmares. Not currently in treatment for psychiatry. She is supposed to be starting [facility] when a space is available. CIWA as of 1200: [id number] VS 0950 110/60, 85HR Plan: 1. I have stopped lamotrigine, which she has not taken for one month. It was not efffective for insomnia. This med needs to be started at 25 mg daily for 2 weeks , due to risk of Dorantes-Leo rash. 2. I have increased her scheduled lorazepam to 3 mg PO q 4 hours, due to receiving 22 mg in the last 24 hours (12 scheduled, 10 PRN). We will review on . Hold for oversedation or respiratory depression. 3. Continue daily thiamine, vitamins and folic acid. 4. Social work consult to assist with aftercare planning 5. Consider low threshold for transfer to the ICU and a lorazepam drip. 6. Obtain current EKG. 7. If dangerous or severe agitation, consider haloperidol 1 mg PO, IM if unable to take PO, q 12 hours, PRN. Hold for oversedation or respiratory depression. Hold for hypomagnesemia or hypokalemia. Hold for arrythmia or QTc greater than 475 mS. We will continue to follow along with you.
[2017-12-08] VITALS: BP 116/70
[2017-12-08 06:18] VITALS: BP 110/70
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
[2017-12-08 08:20] LABS: ABSOLUTE BASOPHIL COUNT 0 /CUMM (0.0-0.2); ABSOLUTE EOSINOPHIL COUNT 0 /CUMM (0.0-0.7); ABSOLUTE LYMPH COUNT 2.6 /CUMM (1.2-3.4); ABSOLUTE MONOCYTE COUNT 0.4 /CUMM (0.10-0.60); BASOPHIL % 0.3 % (0.0-2.0); EOSINOPHIL % 0.9 % (0-5); GRANULOCYTE % 39.4 % (42.2-75.2); HEMATOCRIT 34.3 % (37-47); MEAN CORPUSCULAR HGB 31.7 PG (27.0-31.0); MEAN CORPUSCULAR HGB CONC 33.7 G/DL (33.0-37.0); MEAN CORPUSCULAR VOLUME 94.2 FL (81.0-99.0); MEAN PLATELET VOLUME 8.9 FL (7.4-10.4); PLATELET COUNT 88 /CUMM (130-400); RBC DISTRIBUTION WIDTH 16.7 % (11.5-14.5); RED BLOOD CELL CT 3.64 /CUMM (4.20-5.40)
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
[2017-12-08 15:08] VITALS: BP 114/60
[2017-12-08] MEDS ORDERED: ONE DAILY MULT1 EAC2 PO (16:53)
[2017-12-08] MEDS ORDERED: MINIPRESS1 MG PO (16:53)
[2017-12-08] MEDS ORDERED: PROPRANOLOL HCL60 M3 PO (16:53)
[2017-12-08] MEDS ORDERED: NEURONTIN300 M1 PO (16:53)
--- NOTE | 2017-12-08 16:55 | Patient Discharge Instructions ---
Discharge Instructions General Discharge Information You were seen/treated for: ANXIETY Alcohol detox Special Instructions: -please follow up with your primary care doctor after discharge -Patient has an intake appointment at [facility] on Monday, December 15, 2017, at 2:00 PM. She will appear at [address] [place] [address] . she will bring her photo ID and her insurance card. Diet Continue normal diet: Yes Activity Full Activity/No Limits: Yes Acute Coronary Syndrome Inclusion Criteria At DC or during hospital stay patient has or had the following: ACS DIAGNOSIS No Discharge Core Measures Meds if any: Prescribed or Continued at Discharge Meds if any: NOT Prescribed or Continued at Discharge Congestive Heart Failure Inclusion Criteria At DC or during hospital stay patient has or had the following: CHF DIAGNOSIS No Discharge Core Measures Meds if any: Prescribed or Continued at Discharge Meds if any: NOT Prescribed or Continued at Discharge Cerebrovascular accident Inclusion Criteria At DC or during hospital stay patient has or had the following: CVA/TIA Diagnosis No Discharge Core Measures Meds if any: Prescribed or Continued at Discharge Meds if any: NOT Prescribed or Continued at Discharge Venous thromboembolism Inclusion Criteria VTE Diagnosis No VTE Type NONE VTE Confirmed by (Test) NONE Discharge Core Measures - Per Current guidelines, there needs to be overlap - treatment for the first 5 days of Warfarin therapy. - If discharged on Warfarin prior to 5 days of - overlap therapy, the patient will need to be - assessed for post discharge needs including - *Post discharge parental anticoagulation - *Warfarin and/or parental anticoagulation education - *Follow up date to check INR post discharge At least 5 days overlap therapy as Inpatient No Meds if any: Prescribed or Continued at Discharge Note: Overlap Therapy is Warfarin and Anticoagulant Meds if any: NOT Prescribed or Continued at Discharge
[2017-12-08 17:00] VITALS: BP 120/68
--- NOTE | 2017-12-08 18:11 | Incdntl Nt Psy ---
Incidental Note Notation: The patient's father has called, per nursing, and will want to be kept apprised of the patient's disposition. The team will contact him early next week, if the patient provides permission/WANG. The father is Doug, .
[2017-12-08 22:30] VITALS: BP 100/60
[2017-12-09] VITALS (11 sets, daily range): BP systolic 98–120; BP diastolic 58–72
--- NOTE | 2017-12-09 14:45 | PN- Att Addend ---
Attending Addendum Attending Brief Note Patient seen and examined, has multiple complaints. Complaint of constipation, pain, feeling anxious. CIWA scores are not too bad. Vital Signs Date Time Temp Pulse Resp B/P B/P Pulse O2 O2 Flow FiO2 Mean Ox Delivery Rate 12/09 1353 97.8 81 18 100/60 93 12/09 1047 98.1 85 18 98/58 97 / 0948 80 114/62 12/09 0947 80 114/62 12/09 0800 Room Air 12/09 0622 97.8 99 18 100/58 95 Room Air 12/09 0600 98.2 87 16 112/60 12/09 0500 98.2 87 16 112/60 12/09 0400 98.2 87 16 112/60 12/09 0200 98.2 87 16 112/12/09 0200 98.2 87 16 /60 91 Room Air 12/09 0000 98.0 100 18 100/60 12/08 2230 98.0 103 18 100/60 95 Room Air 12/09 2051 115 112/66 12/08 205 115 110/66 12/08 1719 97.8 122 20 114/60 12/08 1700 122 20 120/68 12/08 1508 97.8 122 20 114/60 99 Room Air on exam; aox3, nad. cv; s1,s2, rrr resp; clear abd; soft mildly tenser bs+ ext: no edema no labs. A/P; 37 F with pmh sig for alchohol abuse, alcohol related seizure, bronchitis, SVT, GERD, Mary Lou's thyroiditis, adrenal insufficiency, gastric bypass surgery admitted with acute alcohol intoxication needing detox. Patient now complains of constipation with abdominal pain. Please start the patient on aggressive bowel regimen including MiraLAX, senna, suppository when necessary. We'll go down on the Ativan to 2 g every 6 hours scheduled. Continue when necessary Ativan. Continue the rest of the medications. Patient also narcotics for pain management which could be the reason for her constipation. DVT px: Lovenox.
[2017-12-10] VITALS (7 sets, daily range): BP systolic 80–102; BP diastolic 56–64
[2017-12-10 09:21] LABS: ABSOLUTE BASOPHIL COUNT 0 /CUMM (0.0-0.2); ABSOLUTE EOSINOPHIL COUNT 0.1 /CUMM (0.0-0.7); ABSOLUTE GRANULOCYTE CT 1.7 /CUMM (1.4-6.5); ABSOLUTE LYMPH COUNT 2.7 /CUMM (1.2-3.4); ABSOLUTE MONOCYTE COUNT 0.5 /CUMM (0.10-0.60); BASOPHIL % 0.7 % (0.0-2.0); EOSINOPHIL % 1.2 % (0-5); HEMATOCRIT 32.7 % (37-47); MEAN CORPUSCULAR HGB 31.9 PG (27.0-31.0); MEAN CORPUSCULAR VOLUME 93.8 FL (81.0-99.0); MEAN PLATELET VOLUME 9.2 FL (7.4-10.4); PLATELET COUNT 93 /CUMM (130-400); RBC DISTRIBUTION WIDTH 17.1 % (11.5-14.5); RED BLOOD CELL CT 3.49 /CUMM (4.20-5.40)
--- NOTE | 2017-12-10 10:33 | PN- Housestaff ---
Subjective Follow-up For: Alcohol detox Subjective: No acute events overnight. Patient states that she has had not slept in 2 days. States that she has a new onset cough. Patient is asking to continue home ? hormonal therapy Review of Systems Constitutional: Reports: see HPI. Objective Last 24 Hrs of Vital Signs/I&O Vital Signs Date Time Temp Pulse Resp B/P B/P Pulse O2 O2 Flow FiO2 Mean Ox Delivery Rate 12/11 2211 98.0 97 18 80/60 93 Room Air 12/10 2137 97 88/60 12/10 2137 97 88/60 12/10 2000 97.7 97 16 88/60 12/10 1600 97.6 89 18 100/60 12/10 1403 97.6 89 18 100/60 93 12/10 0948 98.6 90 18 100/60 93 12/10 0835 84 110/82 12/10 0835 84 110/82 12/10 0800 Room Air 12/10 0620 97.8 83 20 102/64 92 Room Air 12/10 0202 97.7 80 18 98/56 91 Room Air Intake & Output 12/11 0800 12/11 0000 12/10 1600 Intake Total 1300 980 Output Total 950 1200 Balance 350 -220 Intake, IV 500 Intake, Oral 800 980 Output, Urine 950 1200 Physical Exam General Appearance: Alert, Oriented X3, Cooperative, Moderate Distress Cardiovascular: mild tachycardia Lungs: rhonchi with cough/expiration, decreased breath sounds Abdomen: Normal Bowel Sounds, Soft, No Tenderness Extremities: mild tenderness to right lower ribs. Severe tenderness to left lower ribs. Vascular: 2+ radial pulses Assessment/Plan Assessment: 37 yo F presented for alcohol detox PMH: alchohol abuse, alcohol related seizure, bronchitis, SVT, GERD, Mary Lou's thyroiditis, adrenal insufficiency, gastric bypass surgery presented to the ED for alcohol detox. #homronal therapy for vaginal bleed hx of ?fibroids patient now having vaginal bleeding -consider starting lupron #new onset cough Repeat chest x-ray negative for any acute causes -Continue Robitussin -Continue incentive spirometry -Start antihistamine Claritin #Mental health Patient appears to have borderline disorder. She she is extremely anxious at baseline. She is getting scored on agitation and anxiety on CIWA -Appreciate psychiatric recommendation -Continue Ativan taper as per psych -prazosin 1 mg PO before bedtime -Propanolol 60 mg twice a day -Continue Seroquel, trazodone at home doses -If dangerous or severe agitation, consider haloperidol 1 mg PO, IM if unable to take PO, q 12 hours, PRN. Hold for oversedation or respiratory depression. Hold for hypomagnesemia or hypokalemia. Hold for arrythmia or QTc greater than 475 mS. #Alcohol detoxification -Folic acid, multivitamin, thiamin -Ativan 2mg q6, will taper as per psych reccs -Ativan IV PRN per CIWA #Left flank pain patient reports history of rib fractures following recent fall. CXR negative for fracturs, CT abdomen didnot show an intra-abdominal process. It did not reveal subcutaneous air in the left flank. -Pain control wih oxycodone, Hold for confusion and sedation -Pain goal is 5 -lidocaine patch -Avoid Ultram as it lowers the seizure threshold #Hx of seizure disorder Patient has history of alcohol withdrawal seizures? -continue to monitor #Urinary retention? Patient states that she is unable to urinate on her own and currently is on straight catheter protocol. -UA clear urine culture does not show any growth. #Transmitis most likely related to the alcohol hepatitis panel negative, RUQ US showed Diffuse fatty change of liver. Status post cholecystectomy. No bile duct dilatation. -Continue to monitor #Hx of Adrenal insufficiency -Continue chronic steroid therapy for adrenal insufficiency # Hx of Mary Lou's thyroiditis -Continue levothyroxine home dose #FC/Diet regular/DVT PPX: alps and heparin Problem List: 1. Alcohol withdrawal syndrome 2. Rib injury 3. Contusion Pain Ratin Pain Location: ribs Pain Goal: Pain 4 or less Pain Plan: pathway Tomorrow's Labs & Rationales: none
--- NOTE | 2017-12-10 10:50 | RADIOLOGY REPORT ---
EXAMINATION: XR CHEST CLINICAL INFORMATION: Atelectasis or pneumonia. COMPARISON: Chest CT 12/04/2017. TECHNIQUE: 2 views of the chest were obtained. FINDINGS: Lung volumes are low. There is no overt consolidative disease, pleural effusion, or pneumothorax. The cardiac silhouette and upper mediastinal contours are normal. No acute osseous finding. IMPRESSION: Low lung volumes. Otherwise unremarkable chest radiograph. No consolidative disease or effusion.
--- NOTE | 2017-12-10 12:04 | PN- Att Addend ---
Attending Addendum Attending Brief Note Patient seen and examined, complains of dry cough. Still hasn't had a bowel movement. Still complaining of abdominal pain. Vital Signs Date Time Temp Pulse Resp B/P B/P Pulse O2 O2 Flow FiO2 Mean Ox Delivery Rate 12/10 0948 98.6 90 18 100/60 93 12/10 0835 84 110/82 12/10 0835 84 110/82 12/10 0620 97.8 83 20 102/64 92 Room Air 12/10 0202 97.7 80 18 98/56 91 Room Air 12/09 2218 97.7 72 20 100/60 93 12/09 2200 97.7 72 20 100/60 12/09 2106 78 110/68 12/09 2104 78 110/68 12/09 1800 98.0 98 18 120/72 12/09 1353 97.8 81 18 100/60 93 on exam; aox3, nad. cv; s1,s2, rrr resp; clear abd; soft mildly tenser bs+ ext: no edema Laboratory Tests 12/10 0720 Chemistry Sodium (137 - 145 mmol/L) 137 Potassium (3.5 - 5.1 mmol/L) 4.0 Chloride (98 - 107 mmol/L) 104 Carbon Dioxide (22 - 30 mmol/L) 27 Anion Gap (5 - 16) 7 BUN (7 - 17 mg/dL) 10 Creatinine (0.5 - 1.0 mg/dL) 0.8 Estimated GFR (>60 ml/min) > 60 BUN/Creatinine Ratio (7 - 25 %) 12.5 Hematology CBC w Diff NO MAN DIFF REQ WBC (4.8 - 10.8 /CUMM) 5.0 RBC (4.20 - 5.40 /CUMM) 3.49 L Hgb (12.0 - 16.0 G/DL) 11.1 L Hct (37 - 47 %) 32.7 L MCV (81.0 - 99.0 FL) 93.8 MCH (27.0 - 31.0 PG) 31.9 H MCHC (33.0 - 37.0 G/DL) 34.0 RDW (11.5 - 14.5 %) 17.1 H Plt Count (130 - 400 /CUMM) 93 L MPV (7.4 - 10.4 FL) 9.2 Gran % (42.2 - 75.2 %) 35.0 L Lymphocytes % (20.5 - 51.1 %) 53.5 H Monocytes % (1.7 - 9.3 %) 9.6 H Eosinophils % (0 - 5 %) 1.2 Basophils % (0.0 - 2.0 %) 0.7 Absolute Granulocytes (1.4 - 6.5 /CUMM) 1.7 Absolute Lymphocytes (1.2 - 3.4 /CUMM) 2.7 Absolute Monocytes (0.10 - 0.60 /CUMM) 0.5 Absolute Eosinophils (0.0 - 0.7 /CUMM) 0.1 Absolute Basophils (0.0 - 0.2 /CUMM) 0 A/P; 37 F with pmh sig for alchohol abuse, alcohol related seizure, bronchitis, SVT, GERD, Mary Lou's thyroiditis, adrenal insufficiency, gastric bypass surgery admitted with acute alcohol intoxication needing detox. Patient complains of dry cough, constipation with abdominal pain. Please was started on bowel regimen including MiraLAX, senna, suppository when necessary. Please add mild. We'll go down on the Ativan to 1.5 g every 6 hours scheduled. Continue when necessary Ativan. Chest x-ray does not show any evidence of infiltrate. Patient was encouraged to ambulate because there is no evidence of Ativan. She should also use incentive spirometry. Adding antihistamine such as Claritin would help in addition to guaifenesin. Continue the rest of the medications. Patient also narcotics for pain management which could be the reason for her constipation. DVT px: Lovenox.
[2017-12-11 02:00] VITALS: BP 122/70
[2017-12-11 06:32] VITALS: BP 112/56
--- NOTE | 2017-12-11 07:36 | PN- Housestaff ---
Aaron SOSA,[facility] 12/11/17 0735: Subjective Follow-up For: Anxiety Alcohol withdrawal Subjective: Patient seen and examined. -Complaining of episode of urinary incontinence over the weekend. Urology consult has been placed awaiting recommendation -Complaining of vaginal bleeding across she did not receive her contraceptive medication will restart today -Had an episode of cough over the weekend chest x-ray clear -Complaining of left flank pain appears to be muscular -overnight blood pressure was 80/60 responded to 500 ml bolus -Patient has been counseled to ambulate today. Review of Systems Constitutional: Reports: see HPI. Objective Last 24 Hrs of Vital Signs/I&O Vital Signs Date Time Temp Pulse Resp B/P B/P Pulse O2 O2 Flow FiO2 Mean Ox Delivery Rate 12/11 0632 98.1 63 18 112/56 92 Room Air 12/11 0200 97.8 80 18 122/70 92 Room Air 12/10 2212 98.0 97 18 80/60 93 Room Air 12/10 2137 97 88/60 12/10 2137 97 88/60 12/10 2000 97.7 97 16 88/60 12/10 1600 97.6 89 18 100/60 12/10 1403 97.6 89 18 100/60 93 12/10 0948 98.6 90 18 100/60 93 12/10 0835 84 110/82 12/10 0835 84 110/82 12/10 0800 Room Air Intake & Output 12/11 0800 12/11 0000 12/10 1600 Intake Total 100 1300 980 Output Total 950 1200 Balance 100 350 -220 Intake, IV 500 Intake, Oral 100 800 980 Output, Urine 950 1200 Physical Exam General Appearance: Alert, Oriented X3, Cooperative Cardiovascular: Normal S1, Normal S2 Lungs: Normal Air Movement Abdomen: Normal Bowel Sounds, Soft Neurological: Normal Speech Current Medications: Current Medications Sig/Jarret Start time Last Medication Dose Route Stop Time Status Admin Albuterol Sulfate 2 PUF Q4P PRN 12/05 1730 AC INH Bisacodyl 10 MG DAILY PRN 12/09 1730 AC KS Enoxaparin Sodium 40 MG DAILY 12/06 09 AC 12/10 SC 0836 Folic Acid 1 MG DAILY 12/06 09 AC 12/10 PO 0835 Gabapentin 300 MG Q8 12/05 06 AC 12/11 PO 0550 Guaifenesin 10 ML Q6P PRN 12/10 0945 AC 12/10 PO 1130 Levothyroxine Sodium 0.075 MG DAILY AC 12/06 0700 AC 12/11 PO 0550 Lidocaine 1 PAT DAILY 12/06 1015 AC 12/10 EXT 0844 Loratadine 10 MG DAILY 12/10 1900 AC PO Lorazepam 1.5 MG Q6 12/10 1800 AC 12/11 PO 0554 Lorazepam 2 MG Q6 12/09 1800 DC 12/10 PO 1129 Lorazepam 2 MG Q2P PRN 12/06 1130 AC 12/09 IV 0454 Lorazepam 1 MG Q2P PRN 12/06 1130 AC IV Melatonin 5 MG AT BEDTIME 12/08 2100 AC 12/10 PO 2126 Montelukast Sodium 10 MG AT BEDTIME 12/05 2100 AC 12/10 PO 1948 Multivitamins 1 TAB DAILY 12/06 0900 AC 12/10 PO 0835 Omeprazole 20 MG DAILY AC 12/06 1315 AC 12/11 PO 0550 Ondansetron HCl 4 MG .STK-MED ONE 12/10 1303 DC IM 12/10 1304 Ondansetron HCl 4 MG Q6 PRN 12/05 2115 AC 12/10 IV 1305 Oxycodone HCl 2.5 MG Q6P PRN 12/07 0045 AC 12/11 PO 0208 Polyethylene Glycol 17 GM DAILY 12/09 1730 AC 12/10 PO 0840 Prazosin HCl 1 MG AT BEDTIME 12/08 2100 AC 12/09 PO 2104 Prednisone 10 MG DAILY 12/05 1730 AC 12/10 PO 0835 Propranolol HCl 60 MG BID 12/08 1455 AC 12/10 PO 0835 Quetiapine Fumarate 100 MG QPM 12/05 2100 AC 12/10 PO 2126 Senna/Docusate Sodium 2 TAB DAILY 12/09 1315 AC 12/10 PO 0835 Sodium Chloride 500 ML BOLUS ONE 12/10 2145 DC 12/10 IV 12/10 2244 2203 Tamsulosin HCl 0.4 MG DAILY 12/05 1731 AC 12/10 PO 0835 Thiamine HCl 100 MG DAILY 12/06 0900 AC 12/10 PO 0835 Tramadol HCl 25 MG Q6PRN PRN 12/08 1700 AC 12/09 PO 1147 Trazodone HCl 12.5 MG AT BEDTIME 12/08 2100 AC 12/10 PO 1954 Trazodone HCl 50 MG QPM 12/05 2100 AC 12/10 PO 1952 Assessment/Plan Assessment: Patient is 37 yo F presented for alcohol detox PMH: alchohol abuse, alcohol related seizure, bronchitis, SVT, GERD, Mary Lou's thyroiditis, adrenal insufficiency, gastric bypass surgery presented to the ED for alcohol detox. 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 She she is extremely anxious at baseline. She is getting scored on agitation and anxiety on CIWA -Appreciate psychiatric recommendation -Continue Ativan taper -prazosin 1 mg PO before bedtime -Propanolol 60 mg twice a day -Continue Seroquel, trazodone at home doses -If dangerous or severe agitation, consider haloperidol 1 mg PO, IM if unable to take PO, q 12 hours, PRN. Hold for oversedation or respiratory depression. Hold for hypomagnesemia or hypokalemia. Hold for arrythmia or QTc greater than 475 mS. #Alcohol detoxification -Folic acid, multivitamin, thiamin -Ativan-1mg q6, will taper as per psych reccs -Ativan IV PRN per CIWA #Left flank pain patient reports history of rib fractures following recent fall. CXR negative for fracturs, CT abdomen didnot show an intra-abdominal process. It did not reveal subcutaneous air in the left flank. -Pain control wih oxycodone, Hold for confusion and sedation -Pain goal is 5 -lidocaine patch -Avoid Ultram as it lowers the seizure threshold #Hx of seizure disorder Patient has history of alcohol withdrawal seizures? -continue to monitor #Urinary retention? Patient states that she is unable to urinate on her own and currently is on straight catheter protocol. -UA clear urine culture does not show any growth. -Urology consult placed #Transmitis most likely related to the alcohol hepatitis panel negative, RUQ US showed Diffuse fatty change of liver. Status post cholecystectomy. No bile duct dilatation. -Continue to monitor #Hx of Adrenal insufficiency -Continue chronic steroid therapy for adrenal insufficiency -Had an episode of BP of 80/60, recieved 500ml bolus overnight. Maintaing BP as of now no indication of cortisol level as it will be suppressed in seeting of chronic oral intake of steriods -will consider increasing dose of steriods # Hx of Mary Lou's thyroiditis -Continue levothyroxine home dose #FC/Diet regular/DVT PPX: alps and heparin Problem List: 1. Alcohol intoxication Pain Ratin Pain Location: left flank Pain Goal: Pain 4 or less Pain Plan: prn Tomorrow's Labs & Rationales: none Juan Marte MDlaithsilvina 12/11/17 1431: Attending MD Review Statement Attending Statement Attending Statement: examined this patient, discuss w/resident/PA/INSTRUCTOR DECORATING, agreed w/resident/PA/INSTRUCTOR DECORATING, reviewed EMR data (avail), discussed with nursing, discussed with case mgmt, amended to note Attending Assessment/Plan: Patient seen and examined. She was very sleepy this morning even after being woken up. Apparently over the weekend she has been scoring on her she will particularly for anxiety and agitation. She has threatened to leave the hospital AGAINST MEDICAL ADVICE when her Ativan was being tapered. She was seen by the psychiatry service and required a PEC. Patient does have an underlying history of mood disorder. She is currently receiving a slow taper off of benzodiazepine therapy. She is very happy with this regimen. Her mood disorder is being managed according to recommendations of the psychiatric service. We will continue the current regimen as recommended by the psychiatry service. She will be discharged after she has completed her taper. She should follow-up with the psychiatric service in the outpatient setting. She did complain of left flank pain. On examination the ecchymotic area present in the left flank on admission is slowly resolving. She has some tenderness with no rebound or guarding. Abdominal CT on presentation showed no acute pathology. Rib series showed no evidence of fracture. Pain is likely muscular in nature following her fall. Her benzodiazepine should provide some muscle relaxant therapy. Continue Ultram and Roxicodone as needed.
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
--- NOTE | 2017-12-11 13:09 | PN- Psychiatry ---
Assessment/Plan Impression: Alert and oriented to person, place, month and year, but not day. She denies AHG , VH and presents no michael delusions. She reports that she feels safe. She describes feeling confused upon awakening, but she thinks it is due to some of the medications she is taking. Suggestion: See the other note also dated for 12/11/17 Subjective Subjective: See the other note also dated 12/11/17.
[2017-12-11 14:27] VITALS: BP 104/64
--- NOTE | 2017-12-11 14:55 | PN- Psychiatry ---
Assessment/Plan Impression: The patient is reporting a panic attack developing; we will order a one-time dose of lorazepam. She denies any history of troy or bipolar disorder. She had stated that Prozac/ fluoxetine had helped her with her panic and OCD in the past, and is agreeable to restart this. The patient has an interview by phone this afternoon at [address] [facility], a rehab for women, in [place], [place]. The patient was concerned that the facility did not offer dual diagnosis programs. A telephone call by this typewriter ribbon winder confirmed that the facility offers psychiatric treatment in addition to substance abuse treatment. Suggestion: 1. Lorazepam 1 mg IV stat for a panic event occurring now, at 1445. 2. Continue the alcohol detox lorazepam taper to off. 3. I have started fluoxetine 10 mg PO daily for panic, OCD and depression. R/B/ SE reviewed with the patient, who verbalizes understanding. Titrate to affect as an outpatient. 4. Do not discharge the patient on benzodiazepines. 5. If the patient discharges to a rehab, please ask the receiving facility to call and make an appointment with [facility] IOP/OPS when her discharge date is known. [phone] [facility]/[phone] OPS We will continue to follow along with you. Subjective Subjective: Alert and oriented to person, place, month and year, but not day. She denies AHG , VH and presents no michael delusions. She reports that she feels safe. She describes feeling confused upon awakening, but she thinks it is due to some of the medications she is taking. Review of Systems Neurological/Psychological: Reports: anxiety. Objective Last 24 Hrs of Vital Signs/I&O Vital Signs Date Time Temp Pulse Resp B/P B/P Pulse O2 O2 Flow FiO2 Mean Ox Delivery Rate 12/11 1427 97.8 91 20 104/64 94 12/11 0849 63 112/56 12/11 0632 98.1 63 18 112/56 92 Room Air 12/11 0200 97.8 80 18 122/70 92 Room Air 12/10 2212 98.0 97 18 80/60 93 Room Air 12/10 2137 97 88/60 12/10 2137 97 88/60 12/10 2000 97.7 97 16 88/60 12/10 1600 97.6 89 18 100/60 Intake & Output 12/11 1600 12/11 0800 12/11 0000 Intake Total 100 1300 Output Total 200 950 Balance -200 100 350 Intake, IV 500 Intake, Oral 100 800 Output, Urine 200 950 Physical Exam: Not performed Physical Exam General Appearance: anxious Neurologic/Psychiatric: awake, alert, oriented x 3 Current Medications: Current Medications Sig/Jarret Start time Last Medication Dose Route Stop Time Status Admin Albuterol Sulfate 2 PUF Q4P PRN 12/05 1730 AC INH Bisacodyl 10 MG DAILY PRN 12/09 1730 AC MS Enoxaparin Sodium 40 MG DAILY 12/06 0900 AC 12/11 SC 0853 Estrogens Conjugated 0.625 MG DAILY 12/11 1145 AC 12/11 PO 1444 Folic Acid 1 MG DAILY 12/06 0900 AC 12/11 PO 0850 Gabapentin 300 MG Q8 12/05 0600 AC 12/11 PO 1443 Guaifenesin 10 ML Q6P PRN 12/10 0945 12/10 PO 1130 Levothyroxine Sodium 0.075 MG DAILY AC 12/06 0700 AC 12/11 PO 0550 Lidocaine 1 PAT DAILY 12/06 1015 AC 12/11 EXT 0853 Loratadine 10 MG DAILY 12/10 1900 AC 12/11 PO 0849 Lorazepam 1 MG STAT STA 12/11 1444 DC IV 12/11 1445 Lorazepam 1 MG Q6 12/11 1200 AC 12/11 PO 1211 Lorazepam 1.5 MG Q6 12/10 1800 DC 12/11 PO 0554 Lorazepam 2 MG Q2P PRN 12/06 1130 AC 12/09 IV 0454 Lorazepam 1 MG Q2P PRN 12/06 1130 AC IV Medroxyprogesterone 5 MG DAILY 12/11 1145 AC 12/11 Acetate PO 1443 Melatonin 5 MG AT BEDTIME 12/08 2100 AC 12/10 PO 2126 Montelukast Sodium 10 MG AT BEDTIME 12/05 2100 AC 12/10 PO 1948 Multivitamins 1 TAB DAILY 12/06 0900 12/11 PO 0849 Non-Formulary 0 SEE ADMIN CRITERIA 12/11 1145 CAN Medication ANY Omeprazole 20 MG DAILY AC 12/06 1315 AC 12/11 PO 0550 Ondansetron HCl 4 MG Q6 PRN 12/05 2115 AC 12/10 IV 1305 Oxycodone HCl 2.5 MG Q6P PRN 12/07 0045 AC 12/11 PO 1445 Polyethylene Glycol 17 GM DAILY 12/09 1730 AC 12/11 PO 0850 Prazosin HCl 1 MG AT BEDTIME 12/08 2099 AC 12/09 PO 2104 Prednisone 10 MG DAILY 12/05 1730 AC 12/11 PO 0849 Propranolol HCl 60 MG BID 12/08 1455 AC 12/11 PO 0849 Quetiapine Fumarate 100 MG QPM 12/05 2100 AC 12/10 PO 2126 Senna/Docusate Sodium 2 TAB DAILY 12/09 1315 AC 12/11 PO 0849 Sodium Chloride 500 ML BOLUS ONE 12/10 2145 DC 12/10 IV 12/10 2244 2203 Tamsulosin HCl 0.4 MG DAILY 12/05 1731 AC 12/11 PO 0850 Thiamine HCl 100 MG DAILY 12/06 0900 AC 12/11 PO 0850 Tramadol HCl 25 MG Q6PRN PRN 12/08 1700 AC 12/09 PO 1147 Trazodone HCl 12.5 MG AT BEDTIME 12/08 2099 AC 12/10 PO 195 Trazodone HCl 50 MG QPM 12/05 2099 AC 12/10 PO 1952 Results Last 24 Hrs of Labs/Mics: Laboratory Tests 12/10 0720 Chemistry Sodium (137 - 145 mmol/L) 137 Potassium (3.5 - 5.1 mmol/L) 4.0 Chloride (98 - 107 mmol/L) 104 Carbon Dioxide (22 - 30 mmol/L) 27 Anion Gap (5 - 16) 7 BUN (7 - 17 mg/dL) 10 Creatinine (0.5 - 1.0 mg/dL) 0.8 Estimated GFR (>60 ml/min) > 60 BUN/Creatinine Ratio (7 - 25 %) 12.5 Hematology CBC w Diff NO MAN DIFF REQ WBC (4.8 - 10.8 /CUMM) 5.0 RBC (4.20 - 5.40 /CUMM) 3.49 L Hgb (12.0 - 16.0 G/DL) 11.1 L Hct (37 - 47 %) 32.7 L MCV (81.0 - 99.0 FL) 93.8 MCH (27.0 - 31.0 PG) 31.9 H MCHC (33.0 - 37.0 G/DL) 34.0 RDW (11.5 - 14.5 %) 17.1 H Plt Count (130 - 400 /CUMM) 93 L MPV (7.4 - 10.4 FL) 9.2 Gran % (42.2 - 75.2 %) 35.0 L Lymphocytes % (20.5 - 51.1 %) 53.5 H Monocytes % (1.7 - 9.3 %) 9.6 H Eosinophils % (0 - 5 %) 1.2 Basophils % (0.0 - 2.0 %) 0.7 Absolute Granulocytes (1.4 - 6.5 /CUMM) 1.7 Absolute Lymphocytes (1.2 - 3.4 /CUMM) 2.7 Absolute Monocytes (0.10 - 0.60 /CUMM) 0.5 Absolute Eosinophils (0.0 - 0.7 /CUMM) 0.1 Absolute Basophils (0.0 - 0.2 /CUMM) 0
[2017-12-11 20:58] VITALS: BP 116/70
[2017-12-12] VITALS: BP 116/70
[2017-12-12 05:37] VITALS: BP 86/74
[2017-12-12 05:48] VITALS: BP 90/64
[2017-12-12 06:00] VITALS: BP 90/64
--- NOTE | 2017-12-12 07:16 | PN- Housestaff ---
MandeepTalley 12/12/17 0716: Subjective Follow-up For: Alcohol withdrawal Anxiety Subjective: No overnight events. Patient remained afebrile overnight. Patient is complaining of constipation flank pain. Review of Systems Constitutional: Reports: see HPI. Objective Last 24 Hrs of Vital Signs/I&O Vital Signs Date Time Temp Pulse Resp B/P B/P Pulse O2 O2 Flow FiO2 Mean Ox Delivery Rate 12/12 09 77 110/60 12/12 0913 77 110/60 12/12 0800 Room Air 12/12 0600 98.7 77 20 90/64 12/12 0548 90/64 12/12 0537 98.0 77 20 86/74 92 Room Air 12/12 0000 98.2 82 18 116/70 12/11 2058 98.2 82 18 116/70 95 Room Air 12/11 2009 82 116/70 12/11 2008 82 116/70 12/11 1427 97.8 91 20 104/64 94 Intake & Output 12/12 1600 12/12 0800 12/12 0000 Intake Total 360 600 Output Total 300 500 Balance 60 100 Intake, Oral 360 600 Output, Urine 300 500 Physical Exam General Appearance: Alert Skin Temp/Moisture Exam: Warm/Dry Sepsis Skin Exam (color): Normal for Ethnicity HEENT: Atraumatic Neck: Supple Cardiovascular: Normal S1, Normal S2 Lungs: Clear to Auscultation Abdomen: Soft Neurological: Normal Speech, Normal Tone Extremities: No Edema Assessment/Plan Assessment: 37 YO F with PMH of alchohol abuse, alcohol related seizure, bronchitis, SVT, GERD, Mary Lou's thyroiditis, adrenal insufficiency, gastric bypass surgery presented to the ED for alcohol detox. Following the patient on general medicine floor for following problems: Alcohol withdrawal: -Continue CIWA protocol -Taper Ativan to 0.5 twice a day -Continue vitamin supplementation History of anxiety and posttraumatic stress disorder: -Follow-up psychiatry recommendations -prazosin 1 mg PO before bedtime -Propanolol 60 mg twice a day -Continue Seroquel, trazodone at home doses -Patient can't leave AMA Left flank pain: -Continue Roxicodone 2.5 mg every 6 when necessary -lidocaine patch -Avoid Ultram as it lowers the seizure threshold -F/U renal ultrasound. Urinary retention: -Possibly due to alcohol use -We will try voiding trials -After patient started voiding we will start Flomax -Follow-up urology recommendations History of adrenal insufficiency: -Continue prednisone History of hypothyroidism: -Continue levothyroxin DVT prophylaxis: Mechanical and subcutaneous heparin CODE STATUS: Full code Problem List: 1. Alcohol withdrawal syndrome Pain Ratin Pain Location: flank Pain Goal: Remain pain free Pain Plan: pain pathway Tomorrow's Labs & Rationales: none Rosanna SOSA,Yvonsilvina 12/12/17 1249: Attending MD Review Statement Attending Statement Attending MD Statement: examined this patient, discuss w/resident/PA/PUBLIC HEALTH REPRESENTATIVE, agreed w/resident/PA/PUBLIC HEALTH REPRESENTATIVE, reviewed EMR data (avail), discussed with nursing, discussed with case mgmt, amended to note Attending Assessment/Plan: Patient seen and examined. Resting comfortably unless in any acute distress. No issues overnight. No new complaints this morning. She is eager to be discharged home. She does continue to complain of left flank discomfort. She is also complaining of difficulty voiding. Bladder scan per nursing does not show significant urinary retention. On examination abdomen nondistended, ecchymotic area in the left upper quadrant continues to resolve, she has tenderness in the right upper quadrant with no rebound or guarding. Bowel sounds are normal. Recommendations: -Continue to taper down her benzodiazepine therapy. -Follow-up with the psychiatric service regarding ongoing care, patient is expecting to be discharged home. Follow-up with psychiatry service if she will require further inpatient psychiatric care. -Urology consultation placed. Will get renal sonogram as requested. -Continue to mobilize patient.
--- NOTE | 2017-12-12 09:19 | Cons- Urology ---
General Information and HPI Consulting Request Date of Consult: 12/12/17 Requested By: Nj Marte MD Reason for Consult: URINARUY RETENTION Source of Information: patient, old records Exam Limitations: no limitations History of Present Illness: 37 YR OLD ADMITTED FOR ETOH WITHDRAWAL/TOXICITY. NOTED TO HAVE URINARY RETENTION AND REQUIRED MAST. PT STATES NO PRIOR HISTORY OF RETENTION AND USUALLY VOIDS EASILY. Allergies/Medications Allergies: Coded Allergies: amoxicillin (Severe, HIVES 12/04/17) clonidine (Severe, SHORTNESS OF BREATH 12/04/17) esomeprazole (From NEXIUM) (Severe, HIVES 12/04/17) ketorolac (From TORADOL) (Severe, HIVES 12/04/17) adhesive (RASH 12/04/17) dicyclomine (From BENTYL) (HIVES 12/04/17) codeine (NAUSEA 12/04/17) doxycycline (NAUSEA 12/04/17) Home Med List: Albuterol Sulfate (Proventil Hfa) 90 MCG HFA.AER.AD 2 PUF INH Q4 PRN BREATHING (Reported) Codeine Phosphate/Guaifenesi (Guaifenesin AC Cough Syrup) 10 MG-100 MG/5 ML LIQUID 1 TSP PO 4XW COUGH (Reported) Gabapentin (Neurontin) 300 MG CAPSULE 1 CAP PO TID aNXIETY Lamotrigine (Lamotrigine Odt) 100 MG TAB.RAPDIS 1 TAB PO QHS MENTAL (Reported ) Lansoprazole (Prevacid) 30 MG CAPSULE.DR 1 CAP PO DAILY GERD (Reported) Levothyroxine Sodium 75 MCG TABLET 1 TAB PO DAILY THYROID (Reported) Montelukast Sodium 10 MG TABLET 1 TAB PO DAILY ASTHMA (Reported) Multivitamin (One Daily Multivitamin) 1 EACH TABLET 1 TAB PO DAILY Supplement Prazosin Hydrochloride (Minipress) 1 MG CAPSULE 1 TAB PO AT BEDTIME NIGHTMARES Prednisone 10 MG TABLET 1 TAB PO DAILY ADRENAL (Reported) Propranolol HCl 60 MG TABLET 1 TAB PO BID Anxiety Quetiapine Fumarate (Seroquel) 100 MG TABLET 1 TAB PO QPM MENTAL HEALTH ( Reported) Tamsulosin HCl (Flomax) 0.4 MG CAP.ER.24H 1 CAP PO DAILY KIDNEY (Reported) Trazodone HCl 50 MG TABLET 1 TAB PO QPM INSOMNIA (Reported) Current Medications: Current Medications Sig/Jarret Start time Last Medication Dose Route Stop Time Status Admin Albuterol Sulfate 2 PUF Q4P PRN 12/05 1730 AC INH Bisacodyl 10 MG DAILY PRN 12/09 1730 AC OK Enoxaparin Sodium 40 MG DAILY 12/06 0900 AC 12/11 SC 0853 Estrogens Conjugated 0.625 MG DAILY 12/11 1145 AC 12/11 PO 1444 Fluoxetine HCl 10 MG DAILY 12/12 0900 AC PO Folic Acid 1 MG DAILY 12/06 0900 AC 12/11 PO 0850 Gabapentin 300 MG Q8 12/05 0600 AC 12/12 PO 0530 Guaifenesin 10 ML Q6P PRN 12/10 0945 AC 12/10 PO 1130 Levothyroxine Sodium 0.075 MG DAILY AC 12/06 0700 AC 12/12 PO 0530 Lidocaine 1 PAT DAILY 12/06 1015 AC 12/11 EXT 0853 Loratadine 10 MG DAILY 12/10 1900 AC 12/11 PO 0849 Lorazepam 1 MG STAT STA 12/11 1444 DC 12/11 IV 12/11 1445 1450 Lorazepam 1 MG Q6 12/11 1200 AC 12/12 PO 0530 Lorazepam 1.5 MG Q6 12/10 1800 DC 12/11 PO 0554 Lorazepam 2 MG Q2P PRN 12/06 1130 AC 12/09 IV 0454 Lorazepam 1 MG Q2P PRN 12/06 1130 AC IV Medroxyprogesterone 5 MG DAILY 12/11 1145 AC 12/11 Acetate PO 1443 Melatonin 5 MG AT BEDTIME 12/08 2100 AC 12/11 PO 2011 Montelukast Sodium 10 MG AT BEDTIME 12/05 2100 AC 12/11 PO 2009 Multivitamins 1 TAB DAILY 12/06 0900 AC 12/11 PO 0849 Non-Formulary 0 SEE ADMIN CRITERIA 12/11 1145 CAN Medication ANY Omeprazole 20 MG DAILY AC 12/06 1315 AC 12/12 PO 0530 Ondansetron HCl 4 MG .STK-MED ONE 12/12 0014 DC IM 12/12 0015 Ondansetron HCl 4 MG .STK-MED ONE 12/11 1621 DC IM 12/11 1622 Ondansetron HCl 4 MG Q6 PRN 12/05 2115 AC 12/12 IV 0016 Oxycodone HCl 2.5 MG Q6P PRN 12/07 0045 AC 12/12 PO 0530 Patient Medication 1 ED ONE ONE 12/11 1715 DC 12/11 Teaching ED 12/11 1716 1704 Polyethylene Glycol 17 GM DAILY 12/09 1730 AC 12/11 PO 0850 Prazosin HCl 1 MG AT BEDTIME 12/08 2100 AC 12/11 PO 2009 Prednisone 10 MG DAILY 12/05 1730 AC 12/11 PO 0849 Propranolol HCl 60 MG BID 12/08 1455 AC 12/11 PO 2009 Quetiapine Fumarate 100 MG QPM 12/05 2100 AC 12/11 PO 2010 Senna/Docusate Sodium 2 TAB DAILY 12/09 1315 AC 12/11 PO 0849 Tamsulosin HCl 0.4 MG DAILY 12/05 1731 AC 12/11 PO 0850 Thiamine HCl 100 MG DAILY 12/06 0900 AC 12/11 PO 0850 Tramadol HCl 25 MG Q6PRN PRN 12/08 1700 AC 12/09 PO 1147 Trazodone HCl 12.5 MG AT BEDTIME 12/08 2100 AC 12/11 PO 2009 Trazodone HCl 50 MG QPM 12/05 2100 AC 12/11 PO 2008 Past History Medical History Blood Transfusion Hx: No Neurological: NONE EENT: NONE Cardiovascular: SVT Respiratory: bronchitis Gastrointestinal: GERD Hepatic: NONE Renal: NONE Musculoskeletal: FX RIBS TO LEFT SIDE Psychiatric: alcohol dependence, 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 Home Smoking Status: Current Some Day Smoker ETOH Use: alcoholic Illicit Drug Use: denies illicit drug use Employment History Retired? unknown Review of Systems Review of Systems Constitutional: Denies: no symptoms. EENTM: Denies: no symptoms. Cardiovascular: Denies: no symptoms. Respiratory: Denies: no symptoms. GI: Reports: constipation. Genitourinary: Reports: hesitation. Musculoskeletal: Denies: no symptoms. Skin: Denies: no symptoms. Exam & Diagnostic Data Vital Signs and I&O Vital Signs Date Time Temp Pulse Resp B/P B/P Pulse O2 O2 Flow FiO2 Mean Ox Delivery Rate 12/12 0600 98.7 77 20 90/64 12/12 0548 90/64 12/12 0537 98.0 77 20 86/74 92 Room Air 12/12 0000 98.2 82 18 116/70 12/11 2057 98.2 82 18 116/70 95 Room Air 12/11 2009 82 116/70 12/11 2008 82 116/70 12/11 1427 97.8 91 20 104/64 94 Intake & Output 12/12 1600 12/12 0800 12/12 0000 12/11 1600 12/11 0800 12/11 0000 Intake Total 360 024 859 5286 Output Total 300 500 600 950 Balance 60 100 -600 100 350 Intake, IV 500 Intake, Oral 360 600 100 800 Output, Urine 300 500 600 950 Physical Exam General Appearance: well developed/nourished Head: atraumatic Eyes: Bilateral: normal appearance. Neck: normal inspection Respiratory: normal breath sounds Cardiovascular: regular rate/rhythm Back: normal inspection Extremities: normal inspection Reproductive: Normal female genitalia Imaging Results: PATIENT: MARGARET MAYEN PRESENT AGE: 37 PATIENT ACCOUNT NO: [id number] : 78 LOCATION: 2NA ORDERING PHYSICIAN: Meliza Larry MD SERVICE DATE: 12/05/17- EXAM TYPE: US - US-LIMITED ABDOMEN EXAMINATION: US ABDOMEN LIMITED CLINICAL INFORMATION: Increased LFTs.. COMPARISON: CT abdomen 12/04/2017 TECHNIQUE: Real-time imaging of the right upper quadrant abdominal viscera. Color Doppler exam used. FINDINGS: Bowel gas limits study. PANCREAS: Obscured by bowel gas LIVER: There is diffuse increased echogenicity of liver parenchyma due to fatty change. No focal liver lesion. No intrahepatic bile duct dilatation. Right lobe liver measures 16.5 cm GALLBLADDER: Status post cholecystectomy COMMON BILE DUCT: Normal in caliber measuring 0.4 cm in diameter. RIGHT KIDNEY: Normal. No hydronephrosis. No renal calculi or focal parenchymal lesions. The kidney measures 8.8 cm in maximum dimension. FREE FLUID: None. IMPRESSION: 1. Diffuse fatty change of liver. 2. Status post cholecystectomy. No bile duct dilatation. DICTATED BY: Marky Stevens MD DATE/TIME DICTATED:12/05/172100 EXPLORATION ENGINEER:RAJI DATE/TIME TRANSCRIBED:12/05/172100 CONFIDENTIAL, DO NOT COPY WITHOUT APPROPRIATE AUTHORIZATION. <Electronically signed in Other Vendor System> SIGNED BY: Marky Stevens MD 12/05/172106 Assessment/Plan Assessment/Plan urinary retention during acute ETOH./voiding trial, flomax 0.4hs during hospital stay only once voiding well Copies To: Destin Alves MD Consult Acknowledgment - Thank you for your consult request. Attending MD Review Statement Attending Statement Attending MD Statement: examined this patient, discuss w/resident/PA/ADVERTISING SPECIALIST Attending Assessment/Plan: retention exacerbated by ETOH toxicity/voiding trail prior to discharge from floor
[2017-12-12 13:54] VITALS: BP 110/74
--- NOTE | 2017-12-12 14:23 | ULTRASOUND REPORT ---
EXAMINATION: US RETROPERITONEAL COMPLETE (RENAL) CLINICAL INFORMATION: Urinary retention. Presumptive diagnosis of obstructive uropathy. Patient states left flank pain for 2 days. COMPARISON: None TECHNIQUE: Real-time imaging of the kidneys and bladder. FINDINGS: RIGHT KIDNEY: 9.9 x 4.8 x 4.7 cm (SAG x AP x TRV). The kidney is normal in size, contour, and echogenicity. Renal cortical thickness is normal. No calculi or focal parenchymal lesions. No hydronephrosis. LEFT KIDNEY: 9.5 x 5.5 x 4.2 cm (SAG x AP x TRV). The kidney is normal in size, contour, and echogenicity. Renal cortical thickness is normal. No calculi or focal parenchymal lesions. No hydronephrosis. BLADDER: Partially distended and normal. Bilateral ureteral jets are demonstrated. Prevoid bladder volume is 125 mL. Postvoid bladder volume is 4.5 mL. IMPRESSION: 1. Normal kidneys. 2. Bladder unremarkable.
[2017-12-12 21:49] VITALS: BP 96/66
[2017-12-13] VITALS: BP 96/66
[2017-12-13 06:20] VITALS: BP 106/64
--- NOTE | 2017-12-13 07:26 | PN- Housestaff ---
[facility] Subjective Follow-up For: Alcohol withdrawal Constipation Left flank pain Subjective: No overnight events. Patient remained afebrile. Seen and examined this morning. She reported having left flank pain /. Patient feels much improved compared to yesterday. She also reported having constipation and mucus in blood during bowel movement. She denied any chest pain, palpitation, nausea, vomiting , abdominal pain and dysuria. Review of Systems Constitutional: Denies: chills, fever, malaise. EENTM: Reports: no symptoms. Cardiovascular: Denies: chest pain, palpitations. Respiratory: Denies: cough, short of breath, sputum production. Gastrointestinal: Reports: constipation. Denies: abdominal pain, diarrhea, nausea. Genitourinary: Reports: no symptoms. Musculoskeletal: Reports: see HPI. Neurological/Psychological: Reports: no symptoms. Objective Last 24 Hrs of Vital Signs/I&O Vital Signs Date Time Temp Pulse Resp B/P B/P Pulse O2 O2 Flow FiO2 Mean Ox Delivery Rate 12/13 0857 98.6 83 18 106/64 12/13 0857 98.6 83 18 106/64 12/13 0620 98.6 83 18 106/64 93 Room Air 12/13 0000 98.5 77 20 96/66 12/12 2149 98.5 77 20 96/66 95 Room Air 12/12 2118 77 98/58 12/12 2118 77 98/58 12/12 1354 98.0 80 18 110/74 95 Room Air Intake & Output 12/13 1600 12/13 0800 12/13 0000 Intake Total 360 450 Output Total 300 Balance 60 450 Intake, Oral 360 450 Output, Urine 300 Physical Exam General Appearance: Alert, Oriented X3, Cooperative Skin: No Rashes Skin Temp/Moisture Exam: Warm/Dry Sepsis Skin Exam (color): Normal for Ethnicity HEENT: Atraumatic, PERRLA, EOMI Neck: Supple Cardiovascular: Normal S1, Normal S2 Lungs: Clear to Auscultation Abdomen: Soft, No Tenderness Neurological: Normal Speech, Strength at 5/5 X4 Ext, Normal Tone Extremities: No Edema Assessment/Plan Assessment: 37 YO F with PMH of alchohol abuse, alcohol related seizure, bronchitis, SVT, GERD, Mary Lou's thyroiditis, adrenal insufficiency, gastric bypass surgery presented to the ED for alcohol detox. Following the patient for following problems: Alcohol withdrawal: -Continue CIWA protocol -Taper Ativan to 0.5 twice a day -Continue vitamin supplementation History of anxiety and posttraumatic stress disorder: -Follow-up psychiatry recommendations -prazosin 1 mg PO before bedtime -Propanolol 60 mg twice a day -Continue Seroquel, trazodone at home doses -F/U Psych recommendations Left flank pain: -Continue Roxicodone 2.5 mg every 6 when necessary -lidocaine patch -Avoid Ultram as it lowers the seizure threshold -Renal ultrasound negative for stone. Urinary retention:(resolved) -Possibly due to alcohol use -Continue flomax History of adrenal insufficiency: -Continue prednisone History of hypothyroidism: -Continue levothyroxin DVT prophylaxis: Mechanical and subcutaneous heparin CODE STATUS: Full code Problem List: 1. Alcohol withdrawal syndrome 2. Anxiety 3. Constipation Pain Ratin Pain Location: left flank Pain Goal: Pain 4 or less Pain Plan: pain pathway Tomorrow's Labs & Rationales: none Nj Marte MD 12/13/17 1340: Attending MD Review Statement Attending Statement Attending MD Statement: examined this patient, discuss w/resident/PA/PRESSURE WASHER, agreed w/resident/PA/PRESSURE WASHER, discussed with family, reviewed EMR data (avail), discussed with nursing, discussed with case mgmt, amended to note Attending Assessment/Plan: Patient seen and examined. No issues overnight reported by nursing staff. Ground Host/Hostess reported that she had a small bowel movement yesterday. Patient will reports that she still feels constipated. She reports that her left flank pain has improved significantly today. She also reports the ability to void freely. I had a prolonged conversation with the patient her father, mother as well as the psychiatric service and geriatric social worker. We did discuss ongoing plan of care following discharge from the hospital. Patient will be following up at the [facility] upon discharge. She is no longer considered suicide risk by the psychiatric service. We will continue her Ativan 0.5 mg orally twice daily today. She will receive a dose of Ativan 0.5 mg tomorrow morning after which may be discharged home.
[2017-12-13 12:00] VITALS: BP 106/64
--- NOTE | 2017-12-13 13:52 | PN- Psychiatry ---
See Addendum Assessment/Plan Impression: The patient is calmer and participating in her discharge plan. She has been in contact with the [facility] women's program, and she is not sure it is the correct option for her. There was a meeting today with Dr. Tatianna Marte, attending, Julia Perez, [facility], medical social work and case management, Dr. Pat Wong, this health underwriter and the patient's parents, Doug and Agustina on the phone. We discussed several options for aftercare treatment, including [facility] followed by Outpatient Psychiatry for continuity of care. Because the patient had recently graduated from the [facility], we are suggesting that she be interviewed there, and that the possibilty of transfer to [facility] be evaluated. The parents are agreeable to the plan, and may have other questions later. The patient reports that she wants to continue with her AA meetings, and she has a sponsor. After my interview with the patient before the meeting and discussion with Dr. Marte, the attending physician, the Physician's Emergency Certificate has been voided as of today at 1345, and it remains in the chart with that notation. Suggestion: 1. Continue fluoxetine 10 mg PO daily. This has reently been restarted, the patient is tolerating it well. 2. Continue trazodone 50 mg PO q PM 3. Continue quetiapine 100 mg PO q PM 4. Continue gabapentin 200 mg PO 3X/day, for anxiety, an off-label use. 5. Continue the alcohol detox lorazepine taper to off. 6. The patient will need an intake appointment with the [facility]. 7. The PEC has been voided, as above. The patient no longer needs a 1:1 safety monitor for suicidal ideation, but may require it for other nursing or medical reasons. The patient is not suicidal, psychotic, nor delirious, and is safe to discharge from a psychiatric viewpoint. Thank you for this consult. Please re-consult if other psychiatric matters arise. Psychiatry is signing off. Subjective Subjective: A+OX3 Denies AH, VH; presents no michael delusions Mood slighty anxious; affect is congruent. She denies suicidal ideation or homicidal ideation. Speech is calm and soft, at a normal rate and volume. Review of Systems Neurological/Psychological: Reports: anxiety. Objective Last 24 Hrs of Vital Signs/I&O Vital Signs Date Time Temp Pulse Resp B/P B/P Pulse O2 O2 Flow FiO2 Mean Ox Delivery Rate 12/13 1200 98.6 83 20 106/64 12/13 1200 98.6 83 20 106/64 12/13 0857 98.6 83 18 106/64 12/13 0857 98.6 83 18 106/64 12/13 0620 98.6 83 18 106/64 93 Room Air 12/13 0000 98.5 77 20 96/66 12/12 2149 98.5 77 20 96/66 95 Room Air 12/12 2118 77 98/58 12/12 2118 77 98/58 Intake & Output 12/13 1600 12/13 0800 12/13 0000 Intake Total 360 450 Output Total 300 Balance 60 450 Intake, Oral 360 450 Output, Urine 300 Physical Exam: Not performed. Physical Exam General Appearance: no apparent distress, alert, awake, comfortable Neurologic/Psychiatric: awake, alert, oriented x 3 Current Medications: Current Medications Sig/Jarret Start time Last Medication Dose Route Stop Time Status Admin Albuterol Sulfate 2 PUF Q4P PRN 12/05 1730 AC INH Bisacodyl 10 MG DAILY PRN 12/09 1730 AC DE Enoxaparin Sodium 40 MG DAILY 12/06 0900 AC 12/12 SC 0908 Estrogens Conjugated 0.625 MG DAILY 12/11 1145 AC 12/13 PO 0855 Fluoxetine HCl 10 MG DAILY 12/12 0900 AC 12/13 PO 0851 Folic Acid 1 MG DAILY 12/06 0900 AC 12/13 PO 0857 Gabapentin 300 MG Q8 12/05 0600 AC 12/13 PO 0625 Guaifenesin 10 ML Q6P PRN 12/10 0945 AC 12/10 PO 1130 Levothyroxine Sodium 0.075 MG DAILY AC 12/06 0700 AC 12/13 PO 0625 Lidocaine 1 PAT DAILY 12/06 1015 AC 12/13 EXT 0856 Loratadine 10 MG DAILY 12/10 1900 AC 12/13 PO 0857 Lorazepam 0.5 MG BID 12/13 0900 AC 12/13 PO 12/20 0859 0930 Lorazepam 0.5 MG Q6 12/12 1200 DC 12/13 PO 12/18 1159 0626 Lorazepam 2 MG Q2P PRN 12/06 1130 DC 12/09 IV 0454 Lorazepam 1 MG Q2P PRN 12/06 1130 DC IV Medroxyprogesterone 5 MG DAILY 12/11 1145 AC 12/13 Acetate PO 0852 Melatonin 5 MG AT BEDTIME 12/08 2100 AC 12/12 PO 2118 Montelukast Sodium 10 MG AT BEDTIME 12/05 2100 AC 12/12 PO 2117 Multivitamins 1 TAB DAILY 12/06 0900 AC 12/13 PO 0851 Omeprazole 20 MG DAILY AC 12/06 1315 AC 12/13 PO 0625 Ondansetron HCl 4 MG ONCE ONE 12/13 0845 DC 12/13 PO 12/13 0846 0847 Ondansetron HCl 4 MG .STK-MED ONE 12/12 1704 DC IM 12/12 1705 Ondansetron HCl 4 MG Q6 PRN 12/05 211 AC 12/12 IV 1705 Oxycodone HCl 2.5 MG Q6P PRN 12/07 0045 AC 12/13 PO 1237 Patient Medication 1 ED ONE ONE 12/13 1100 CA Teaching ED 12/13 1101 Patient Medication 1 ED ONE ONE 12/12 1700 CA Teaching ED 12/12 1701 Polyethylene Glycol 17 GM DAILY 12/09 1730 AC 12/13 PO 0856 Prazosin HCl 1 MG AT BEDTIME 12/08 2100 AC 12/12 PO 2118 Prednisone 10 MG DAILY 12/05 1730 AC 12/13 PO 0855 Propranolol HCl 60 MG BID 12/08 1455 AC 12/13 PO 0857 Quetiapine Fumarate 100 MG QPM 12/05 2100 AC 12/12 PO 2117 Senna/Docusate Sodium 2 TAB DAILY 12/09 1315 AC 12/13 PO 0851 Sodium Phosphate 1 UNIT ONCE PRN 12/13 1345 AC DE Tamsulosin HCl 0.4 MG DAILY 12/05 1731 AC 12/13 PO 0857 Thiamine HCl 100 MG DAILY 12/06 0900 AC 12/13 PO 0851 Tramadol HCl 25 MG Q6PRN PRN 12/08 1700 AC 12/09 PO 1147 Trazodone HCl 12.5 MG AT BEDTIME 12/08 2100 AC 12/12 PO 211 Trazodone HCl 50 MG QPM 12/05 2100 AC 12/12 PO 211 Results Recent Imaging Studies: PATIENT: MARGARET MAYEN PRESENT AGE: 37 PATIENT ACCOUNT NO: [id number] : 78 LOCATION: [facility] ORDERING PHYSICIAN: David Gibson MD SERVICE DATE: 12/12/17- EXAM TYPE: US - US-RENAL/KIDNEY EXAMINATION: US RETROPERITONEAL COMPLETE (RENAL) CLINICAL INFORMATION: Urinary retention. Presumptive diagnosis of obstructive uropathy. Patient states left flank pain for 2 days. COMPARISON: None TECHNIQUE: Real-time imaging of the kidneys and bladder. FINDINGS: RIGHT KIDNEY: 9.9 x 4.8 x 4.7 cm (SAG x AP x TRV). The kidney is normal in size, contour, and echogenicity. Renal cortical thickness is normal. No calculi or focal parenchymal lesions. No hydronephrosis. LEFT KIDNEY: 9.5 x 5.5 x 4.2 cm (SAG x AP x TRV). The kidney is normal in size, contour, and echogenicity. Renal cortical thickness is normal. No calculi or focal parenchymal lesions. No hydronephrosis. BLADDER: Partially distended and normal. Bilateral ureteral jets are demonstrated. Prevoid bladder volume is 125 mL. Postvoid bladder volume is 4.5 mL. IMPRESSION: 1. Normal kidneys. 2. Bladder unremarkable. DICTATED BY: Maria Teresa Monterroso MD DATE/TIME DICTATED:12/12/171415 SPLITTING MACHINE FEEDER:RAJI DATE/TIME TRANSCRIBED:12/12/171415 CONFIDENTIAL, DO NOT COPY WITHOUT APPROPRIATE AUTHORIZATION. <Electronically signed in Other Vendor System> SIGNED BY: Maria Teresa Monterroso MD 1425
[2017-12-13 14:00] VITALS: BP 100/60
[2017-12-13 15:02] VITALS: BP 100/60
[2017-12-13 20:58] VITALS: BP 104/64
[2017-12-14] VITALS: BP 104/64
[2017-12-14 02:00] VITALS: BP 104/64
[2017-12-14 06:43] VITALS: BP 100/56
--- NOTE | 2017-12-14 06:57 | PN- Housestaff ---
[facility] Subjective Follow-up For: Alcohol withdrawal Constipation Left flank pain Subjective: No overnight events. Patient remained afebrile. she is seen and examined this morning. She reported having flank pain 6/10 but under control with pain medication. She still has constipation. Patient denied any chest pain, palpitation, nausea, vomiting, abdominal pain and dysuria. She is being discharged today patient was instructed to follow [facility]. Review of Systems Constitutional: Denies: chills, fever. EENTM: Reports: no symptoms. Cardiovascular: Denies: chest pain, palpitations. Respiratory: Denies: cough, short of breath, sputum production. Gastrointestinal: Reports: constipation. Denies: abdominal pain, diarrhea, melena, nausea. Genitourinary: Reports: no symptoms. Musculoskeletal: Reports: see HPI. Neurological/Psychological: Reports: no symptoms. Objective Last 24 Hrs of Vital Signs/I&O Vital Signs Date Time Temp Pulse Resp B/P B/P Pulse O2 O2 Flow FiO2 Mean Ox Delivery Rate 12/14 1003 70 100/56 12/14 0959 70 100/56 12/14 0643 98.5 70 16 /56 95 Room Air 12/14 0200 98.7 74 16 10464 12/14 0000 98.7 74 16 104/64 12/13 2135 98.7 74 16 104/64 12/13 2134 98.7 74 16 104/64 12/13 2058 98.7 74 16 64 96 Room Air 12/13 1502 98.5 73 18 100/60 96 12/13 1400 98.5 73 20 100/60 12/13 1200 98.6 83 20 106/64 12/13 1200 98.6 83 20 106/64 Intake & Output 12/14 1600 12/14 0800 12/14 0000 Intake Total 500 480 Output Total Balance 500 480 Intake, Oral 500 480 Physical Exam General Appearance: Alert, Oriented X3, Cooperative Skin Temp/Moisture Exam: Warm/Dry Sepsis Skin Exam (color): Normal for Ethnicity HEENT: Atraumatic, PERRLA, EOMI Neck: Supple Cardiovascular: Normal S1, Normal S2 Lungs: Clear to Auscultation Abdomen: Soft, No Tenderness Neurological: Normal Speech, Strength at 5/5 X4 Ext, Normal Tone Extremities: No Edema Assessment/Plan Assessment: 37 YO F with PMH of alchohol abuse, alcohol related seizure, bronchitis, SVT, GERD, Mary Lou's thyroiditis, adrenal insufficiency, gastric bypass surgery presented to the ED for alcohol detox. Following the patient for following problems: Alcohol withdrawal: -Continue CIWA protocol -Taper Ativan to 0.5 twice a day -Continue vitamin supplementation -Patient completed the alcohol detox and she is going home today. -Patient will follow psychiatry as outpatient at [facility]. History of anxiety and posttraumatic stress disorder: -Follow-up psychiatry recommendations -prazosin 1 mg PO before bedtime for nightmares -Propanolol 60 mg twice a day for anxiety -Continue Seroquel, trazodone at home doses -F/U Psych recommendations Left flank pain: -Follow pain pathway -lidocaine patch -Renal ultrasound remained negative for renal stone. Urinary retention:(resolved) -Possibly due to alcohol use -Continue flomax History of adrenal insufficiency: -Continue prednisone History of hypothyroidism: -Continue levothyroxin DVT prophylaxis: Mechanical and subcutaneous heparin CODE STATUS: Full code Problem List: 1. Constipation 2. Alcohol withdrawal syndrome Pain Ratin Pain Location: left flank Pain Goal: Remain pain free Pain Plan: pain pathway Tomorrow's Labs & Rationales: none Rosanna SOSA,Nj 12/14/17 1240: Attending MD Review Statement Attending Statement Attending MD Statement: examined this patient, discuss w/resident/PA/PROPERTY MAN, agreed w/resident/PA/PROPERTY MAN, reviewed EMR data (avail), discussed with nursing, discussed with case mgmt, amended to note Attending Assessment/Plan: Patient seen and examined. No issues overnight reported by nursing staff. Remains afebrile and hemodynamically stable. Resting comfortably and not in any acute distress. She reports mild headache this morning. Denies nausea vomiting. Tolerating her meals. She has completed her Ativan taper this morning. She will be discharged home today and she will be following up with the [facility] for management of her anxiety and alcohol dependence. Patient is in agreement with this plan.
[2017-12-14] MEDS ORDERED: NEURONTIN100 M1 PO ×2 (07:43→07:52)
[2017-12-14] MEDS ORDERED: MINIPRESS1 MG PO (07:52)
[2017-12-14] MEDS ORDERED: PROPRANOLOL HCL60 M3 PO ×2 (07:52→10:05)
[2017-12-14] MEDS ORDERED: ONE DAILY MULT1 EAC2 PO (07:52)
[2017-12-14 08:23] LABS: ABSOLUTE BASOPHIL COUNT 0 /CUMM (0.0-0.2); ABSOLUTE EOSINOPHIL COUNT 0 /CUMM (0.0-0.7); ABSOLUTE GRANULOCYTE CT 1.9 /CUMM (1.4-6.5); ABSOLUTE LYMPH COUNT 2.9 /CUMM (1.2-3.4); ABSOLUTE MONOCYTE COUNT 0.8 /CUMM (0.10-0.60); BASOPHIL % 0.7 % (0.0-2.0); EOSINOPHIL % 0.6 % (0-5); GRANULOCYTE % 33.4 % (42.2-75.2); MEAN CORPUSCULAR HGB 31.5 PG (27.0-31.0); MEAN CORPUSCULAR HGB CONC 33.3 G/DL (33.0-37.0); MEAN CORPUSCULAR VOLUME 94.7 FL (81.0-99.0); MEAN PLATELET VOLUME 8.6 FL (7.4-10.4); RBC DISTRIBUTION WIDTH 16.4 % (11.5-14.5); RED BLOOD CELL CT 3.59 /CUMM (4.20-5.40); WHITE BLOOD CELL COUNT 5.7 /CUMM (4.8-10.8)
[2017-12-14 09:13] LABS: PLATELET COUNT 141 /CUMM (130-400)
[2017-12-14] MEDS ORDERED: PRAZOSIN HCL1 M1 PO (09:50)
[2017-12-14] MEDS ORDERED: DULCOLAX5 M1 PO (10:09)
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
[2017-12-14 13:17] VITALS: BP 100/60
[2017-12-14] MEDS ORDERED: FLUOXETINE HCL10 M2 PO (14:58)
== END 2017-12-14 15:40 | DRG 775 ==
LOC: ERH 17:45 → 2NA 12-05 14:37 → ERHI 12-05 14:37 → ENRESERV 12-05 17:35 → ENTRNSPT 12-05 18:13 → EDTRNSPTSTS 12-05 18:21 → EDTRNSPT 12-05 18:21 → 2NA 12-05 18:24 → CMPTRNSPT 12-05 18:40 → 2NA 12-08 14:25 → ENPENDDIS 12-14 10:55 → ENTRNSPT 12-14 15:12 → 2NA 12-14 15:40 → CMPTRNSPT 12-14 15:51
PROVIDERS: Internal Medicine Hematology & Oncology; Pediatrics; Radiology Vascular & Interventional Radiology; Student in an Organized Health Care Education/Training Program
DX: F10.239 Alcohol dependence with withdrawal, unspecified (principal); F10.229 Alcohol dependence with intoxication, unspecified; E06.3 Autoimmune thyroiditis; Z98.84 Bariatric surgery status; K21.9 Gastro-esophageal reflux disease without esophagitis; Y90.8 Blood alcohol level of 240 mg/100 ml or more; E27.40 Unspecified adrenocortical insufficiency; W19.XXXD Unspecified fall, subsequent encounter; Z91.81 History of falling; R74.0 Nonspecific elevation of levels of transaminase and lactic acid dehydrogenase [LDH]; K75.81 Nonalcoholic steatohepatitis (NASH); F32.9 Major depressive disorder, single episode, unspecified; G40.909 Epilepsy, unspecified, not intractable, without status epilepticus; R44.1 Visual hallucinations; F41.9 Anxiety disorder, unspecified; K59.00 Constipation, unspecified; F17.200 Nicotine dependence, unspecified, uncomplicated; R33.9 Retention of urine, unspecified; Z79.52 Long term (current) use of systemic steroids; F43.10 Post-traumatic stress disorder, unspecified; G40.509 Epileptic seizures related to external causes, not intractable, without status epilepticus; R44.0 Auditory hallucinations
CPT/HCPCS: 2NAP; 2NASP; 36415; 36592; 71046; 71111; 74177; 76775; 80307; 81003; 82436; 87086; 93005; 93010; 94799; 96361; 96365; 96375; 99232; 99233; G0480; J1630; J1650; J2405; J2550; J3101; J3490; J7040; J7120; J7512

== ENCOUNTER 2017-12-22 14:55 | Inpatient (IN) | payer OTHER ==
[~2017-12-22] VITALS: Ht 165.1 cm; Wt 79.4 kg
[~2017-12-22 14:55] MED LIST: DULCOLAX5 M1 PO; FLOMAX0.4 M1 PO; FLUOXETINE HCL10 M2 PO; GUAIFENESIN AC473 M2 PO; HYDROCORTISONE10 M2 PO; LAMOTRIGINE OD100 MG PO; LEVOTHYROXINE75 MCG PO; MINIPRESS1 MG PO; MONTELUKAST SOD10 M1 PO; NEURONTIN100 M1 PO; NEURONTIN300 M1 PO; ONE DAILY MULT1 EAC2 PO; PRAZOSIN HCL1 M1 PO; PREVACID30 M1 PO; PROPRANOLOL HCL60 M3 PO; PROVENTIL HFA6.7 GM INH; SEROQUEL100 M1 PO; TRAZODONE HCL50 M1 PO
[2017-12-22 15:22] VITALS: BP 128/87
[2017-12-22 15:47] LABS: ABSOLUTE BASOPHIL COUNT 0.1 /CUMM (0.0-0.2); ABSOLUTE EOSINOPHIL COUNT 0 /CUMM (0.0-0.7); ABSOLUTE GRANULOCYTE CT 2.9 /CUMM (1.4-6.5); ABSOLUTE MONOCYTE COUNT 0.5 /CUMM (0.10-0.60); BASOPHIL % 0.9 % (0.0-2.0); EOSINOPHIL % 0.5 % (0-5); GRANULOCYTE % 45.1 % (42.2-75.2); HEMATOCRIT 40.2 % (37-47); MEAN CORPUSCULAR HGB 31.2 PG (27.0-31.0); MEAN CORPUSCULAR HGB CONC 33.2 G/DL (33.0-37.0); MEAN CORPUSCULAR VOLUME 94.1 FL (81.0-99.0); MEAN PLATELET VOLUME 7.9 FL (7.4-10.4); PLATELET COUNT 265 /CUMM (130-400); RBC DISTRIBUTION WIDTH 16.3 % (11.5-14.5); RED BLOOD CELL CT 4.27 /CUMM (4.20-5.40); WHITE BLOOD CELL COUNT 6.5 /CUMM (4.8-10.8)
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
[2017-12-22 18:33] VITALS: BP 104/62
[2017-12-22 19:47] VITALS: BP 112/74
--- NOTE | 2017-12-22 20:05 | RADIOLOGY REPORT ---
EXAMINATION: 1. LEFT FOOT. 2. LEFT ANKLE. CLINICAL INFORMATION: Left foot pain. Ankle pain. COMPARISON: None TECHNIQUE: 1. Left foot. 3 views 2. Left ankle. 3 views FINDINGS: 1. Left foot. No fracture. No dislocation. Bone and joint are normal. 2. Left ankle. No fracture. No dislocation. Ankle mortise is congruent. IMPRESSION: 1. Left foot. Normal. 2. Left ankle. Normal.
[2017-12-22 21:46] VITALS: BP 102/60
[2017-12-23] VITALS (10 sets, daily range): BP systolic 105–139; BP diastolic 62–89
[2017-12-23] MEDS ORDERED: PREMPRO 0.625-1 EAC1 PO (00:03)
[2017-12-23] MEDS ORDERED: ATIVAN1 M1 PO (21:19)
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
[2017-12-24] VITALS (9 sets, daily range): BP systolic 98–127; BP diastolic 56–80
--- NOTE | 2017-12-24 05:02 | Admission Certification ---
Admission Certification Certification Statement - As attending physician, I certify that at the time of - admission, based on clinical presentation, severity of - symptoms, need for further diagnostic testing and - therapeutic interventions, and risk of adverse outcomes - without in-hospital treatment, in my clinical assessment, - this patient requires an acute hospital stay for a minimum - of two nights or longer. I have also considered psychsocial - factors such as support system, advanced age, financial - issues, cognitive issues, and failed out-patient treatments, - past re-admission history, safety of patient, and lack of - compliance as applicable. Specific rationale supporting this admission is: Alcohol detox
[2017-12-24 08:17] LABS: PT 11.1 SEC (9.4-12.5)
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
[2017-12-25 05:55] VITALS: BP 90/60
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
[2017-12-25 08:55] LABS: ABSOLUTE BASOPHIL COUNT 0 /CUMM (0.0-0.2); ABSOLUTE EOSINOPHIL COUNT 0.1 /CUMM (0.0-0.7); ABSOLUTE GRANULOCYTE CT 1.8 /CUMM (1.4-6.5); ABSOLUTE LYMPH COUNT 2.9 /CUMM (1.2-3.4); ABSOLUTE MONOCYTE COUNT 0.2 /CUMM (0.10-0.60); BASOPHIL % 0.3 % (0.0-2.0); EOSINOPHIL % 1.1 % (0-5); GRANULOCYTE % 35.5 % (42.2-75.2); HEMATOCRIT 35.3 % (37-47); MEAN CORPUSCULAR HGB 31.9 PG (27.0-31.0); MEAN CORPUSCULAR HGB CONC 33.5 G/DL (33.0-37.0); MEAN CORPUSCULAR VOLUME 95.2 FL (81.0-99.0); MEAN PLATELET VOLUME 8.8 FL (7.4-10.4); PLATELET COUNT 135 /CUMM (130-400); RBC DISTRIBUTION WIDTH 14.9 % (11.5-14.5); RED BLOOD CELL CT 3.71 /CUMM (4.20-5.40)
[2017-12-25 08:59] VITALS: BP 94/58
[2017-12-25 14:19] VITALS: BP 110/90
[2017-12-25 21:00] VITALS: BP 110/82
--- NOTE | 2017-12-25 23:02 | ULTRASOUND REPORT ---
EXAMINATION: ULTRASOUND OF THE PELVIS CLINICAL INFORMATION: Abdominal pain. COMPARISON: None. TECHNIQUE: Transabdominal and transvaginal pelvic ultrasound. Doppler evaluation with spectral analysis was performed. A transvaginal study was performed in addition to the transabdominal study which did not yield an adequate examination of the uterus and ovaries due to superimposed distended gas-filled loops of bowel. FINDINGS: The uterus is normal in size and appearance, measuring 4.7 x 2.6 x 3.3 cm longitudinally, anteroposteriorly and transversely. The endometrial stripe thickness is normal, measuring 0.2 cm in thickness. There is decreased echogenicity within the endometrium suggestive of small amount of fluid. No focal myometrial mass is seen. The cervical length is normal measuring 1.7 cm. The ovaries bilaterally are visualized and appear normal, with the right ovary measuring 1.4 x 0.7 x 0.8 cm and the left ovary measuring 1.4 x 1 x 0.9 cm. There are normal arterial and venous spectral waveforms bilaterally. No adnexal mass or free fluid collection seen. IMPRESSION: No evidence of active ovarian torsion at this time. Small ovaries. Small amount of fluid seen in the endometrial canal.
[2017-12-26 06:51] VITALS: BP 99/59
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
--- NOTE | 2017-12-26 11:01 | CT SCAN REPORT ---
EXAMINATION: CT ABDOMEN AND PELVIS WITHOUT CONTRAST CLINICAL INFORMATION: Abdominal discomfort. COMPARISON: Previous CT November 2017. TECHNIQUE: Multidetector volumetric imaging was performed from the superior aspect of the liver through the pubic symphysis. Sagittal and coronal reformatted images were obtained on the technologist's workstation. DLP: 519 mGy-cm FINDINGS: LUNG BASES: There is subsegmental atelectasis at the lung bases. LIVER, GALLBLADDER, AND BILIARY TREE: The liver is normal in size, shape, and attenuation. No focal hepatic lesion or biliary ductal dilatation is present. The gallbladder has been removed. PANCREAS: Unremarkable SPLEEN: Unremarkable ADRENAL GLANDS: Unremarkable KIDNEYS AND URETERS: The kidneys are normal in size, shape, and attenuation. No hydronephrosis, hydroureter, or calculi seen. No perinephric stranding. BLADDER: Unremarkable GASTROINTESTINAL TRACT: There are postoperative changes from gastric bypass. There is stool seen throughout the colon questionable for constipation. Small and large bowel are otherwise unremarkable. The appendix appears to have been removed. ABDOMINAL WALL: There is a small umbilical hernia containing fat. LYMPH NODES: Normal VASCULAR: Unremarkable PELVIC VISCERA: Unremarkable OSSEOUS STRUCTURES: Unremarkable IMPRESSION: Postsurgical changes from gastric bypass. Stool throughout the colon questionable for constipation. New subsegmental atelectasis at the lung bases.
--- NOTE | 2017-12-26 14:49 | Patient Discharge Instructions ---
Discharge Instructions General Discharge Information You were seen/treated for: Alcohol withdrawal Watch for these problems: Anxiety, light headedness, nausea, vomiting, abdominal pain and chest pain If you experience any of these symptoms come to ED or call to your pcp. Special Instructions: Follow up with your gyne/obs physician after discharge. Follow up with Bertram GONZALEZ for alcohol dependency. Patient doesn't have any primary care physician. Diet Recommended Diet: Regular Activity Activity Self Limited: Yes Acute Coronary Syndrome Inclusion Criteria At DC or during hospital stay patient has or had the following: ACS DIAGNOSIS No Discharge Core Measures Meds if any: Prescribed or Continued at Discharge Meds if any: NOT Prescribed or Continued at Discharge Congestive Heart Failure Inclusion Criteria At DC or during hospital stay patient has or had the following: CHF DIAGNOSIS No Discharge Core Measures Meds if any: Prescribed or Continued at Discharge Meds if any: NOT Prescribed or Continued at Discharge Cerebrovascular accident Inclusion Criteria At DC or during hospital stay patient has or had the following: CVA/TIA Diagnosis No Discharge Core Measures Meds if any: Prescribed or Continued at Discharge Meds if any: NOT Prescribed or Continued at Discharge Venous thromboembolism Inclusion Criteria VTE Diagnosis No VTE Type NONE VTE Confirmed by (Test) NONE Discharge Core Measures - Per Current guidelines, there needs to be overlap - treatment for the first 5 days of Warfarin therapy. - If discharged on Warfarin prior to 5 days of - overlap therapy, the patient will need to be - assessed for post discharge needs including - *Post discharge parental anticoagulation - *Warfarin and/or parental anticoagulation education - *Follow up date to check INR post discharge At least 5 days overlap therapy as Inpatient No Meds if any: Prescribed or Continued at Discharge Note: Overlap Therapy is Warfarin and Anticoagulant Meds if any: NOT Prescribed or Continued at Discharge
[2017-12-26 15:15] VITALS: BP 100/60
[2017-12-26 23:11] VITALS: BP 112/70
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
[2017-12-27 07:18] VITALS: BP 92/57
[2017-12-27 08:00] VITALS: BP 108/62
[2017-12-27 21:32] VITALS: BP 118/78
[2017-12-28] VITALS: BP 118/78
[2017-12-28 06:22] VITALS: BP 90/64
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
[2017-12-28 08:00] VITALS: BP 90/64
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
[2017-12-28] MEDS ORDERED: QUETIAPINE FUMA25 M1 PO (13:50)
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
[2017-12-28 14:21] VITALS: BP 90/48
[2017-12-28] MEDS ORDERED: SYNTHROID50 MCG PO (20:13)
== END 2017-12-28 17:20 | DRG 772 ==
LOC: ERH 14:55 → ERHI 12-23 22:09 → 2NB 12-23 22:09 → ENRESERV 12-24 02:57 → 2NB 12-24 04:14 → ENTRNSPT 12-28 17:11 → EDTRNSPTSTS 12-28 17:15 → EDTRNSPT 12-28 17:15 → 2NB 12-28 17:20 → CMPTRNSPT 12-28 17:28
PROVIDERS: Internal Medicine; Student in an Organized Health Care Education/Training Program
PROC: HZ89ZZZ Medication Management for Substance Abuse Treatment, Other Replacement Medication (ICD-10-PCS; principal; 2017-12-23)
DX: F10.239 Alcohol dependence with withdrawal, unspecified (principal); E06.3 Autoimmune thyroiditis; Z98.84 Bariatric surgery status; K21.9 Gastro-esophageal reflux disease without esophagitis; E27.40 Unspecified adrenocortical insufficiency; Y90.8 Blood alcohol level of 240 mg/100 ml or more; R74.0 Nonspecific elevation of levels of transaminase and lactic acid dehydrogenase [LDH]; E87.2 Acidosis; E86.0 Dehydration; F43.10 Post-traumatic stress disorder, unspecified; F41.9 Anxiety disorder, unspecified; Z79.52 Long term (current) use of systemic steroids; Z91.5 Personal history of self-harm; Z88.1 Allergy status to other antibiotic agents; Z88.8 Allergy status to other drugs, medicaments and biological substances; Z79.818 Long term (current) use of other agents affecting estrogen receptors and estrogen levels; Z79.891 Long term (current) use of opiate analgesic; Z79.51 Long term (current) use of inhaled steroids; I10 Essential (primary) hypertension; F60.3 Borderline personality disorder; R19.7 Diarrhea, unspecified
CPT/HCPCS: 2NBP; ERO; 36415; 36592; 73610-LT; 73630-LT; 74176; 80307; 81001; 81025; 82436; G0480; J0131; J1650; J2405; J3101; J3490; J7060; J7512

== ENCOUNTER 2017-12-28 12:05 | Inpatient (IN) | payer OTHER ==
[~2017-12-28] VITALS: Ht 165.1 cm; Wt 86.2 kg
[~2017-12-28 12:05] MED LIST changes: +ATIVAN1 M1 PO; +PREMPRO 0.625-1 EAC1 PO
[2017-12-28] MEDS ORDERED: QUETIAPINE FUMA25 M1 PO (13:50)
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
[2017-12-28 19:48] VITALS: BP 110/67; BP 126/66
[2017-12-28] MEDS ORDERED: SYNTHROID50 MCG PO (20:13)
[2017-12-29 07:56] VITALS: BP 103/70
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
[2017-12-29 12:14] VITALS: BP 97/60
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
[2017-12-29 15:58] VITALS: BP 96/65
--- NOTE | 2017-12-29 17:00 | SOCIAL WORKER PROG NOTE PSYCH ---
Social Work Progress Note Progress Note This development writer met with patient. She stated that she was in detox for alcohol ( "upstairs") prior to admission to [facility]. She identified her PTSD as primary triggers for her alcohol use and that both had recently increased. She stated that she has been experiencing nightmares which continue even after she wakes up. She denied current AH, however, stated, "I sense someone sitting next to me." Patient reported 4 1/2 months of sobriety prior to her relapse and stated that she completed a 28 day program at [facility]. Patient stated that she does not feel the need for inpatient rehab at this time and would like to focus on individual therapy to address her trauma. She appeared ambivalent about IOP. Patient denied SI/HI/AH/VH. She was agreeable to a family meeting with both parents. This development writer spoke with her father by phone and scheduled a family meeting for 3pm on 01/01/18.
[2017-12-29 20:04] VITALS: BP 108/68
[2017-12-30 07:40] VITALS: BP 106/67
--- NOTE | 2017-12-30 08:51 | CP SOUTH PROGRESS NOTE PSYCH ---
See Addendum Psych (Inpt) Progress Note Progress Note Mental Status Examination The patient reported that she slept poorly last night, she showed steady gait, she was calm and cooperative. Normal psychomotor activity. No abnormal movements Normal speech, not pressured, not slurred She reported that she is in a better mood today. She showed brighter affect. She reported that she's been feeling less overwhelmed and less irritable Denied thoughts of suicide She denied thoughts of violence and denied thoughts of homicide. Denied hallucinations Denied feeling paranoid, there were no delusions during the interview. Patient was coherent She seems to have reasonable insight and judgment. She was alert and oriented to time, place, and person. Did not seem to have any major difficulties with attention and concentration. No evidence of short-term memory impairment. Assessment: A 51-year-old single white female who presented from the medical floor following her detoxification from alcohol the patient has been feeling overwhelmed agitated and irritable. she was equivocal when it came to thoughts of suicide. She is showing significant improvement in mood and currently denying thoughts of suicide. DSM 5 Diagnosis(es): Unspecified depressive disorder Alcohol use disorder Rule out neurocognitive disorder due to multiple concussions Treatment Plan: Reduce Ativan to 1 mg at night Start risperidone 1 mg at bedtime (which was discontinued in or yesterday) Add when necessary gabapentin 600 mg every 4 hours as needed for anxiety and irritability agitation or insomnia Continue fluoxetine 20 mg daily Did not seem to have any major difficulties with attention and concentration Memory Function: No evidence of short-term memory impairment Estimate of intellectual functioning: Average Assets/Strengths Patient Identified Assets/Strengths: The patient is honest, likable, and intelligent Impression/Plan Impression and Plan: 51-year-old single white female who presents from the medical floor following her detoxification from alcohol the patient has been feeling overwhelmed agitated and irritable. Dr. Bernardo the reported that she was equivocal when it came to thoughts of suicide and it for did not feel comfortable discharging her home - Include all active medical diagnosis that require tx DSM 5 Diagnosis(es): Unspecified depressive disorder Alcohol use disorder Rule out neurocognitive disorder due to multiple concussions - Initial Tx Plan for Active Psych & Medical Conditions Treatment Plan: Inpatient psychiatric care with 15 minute checks start Ativan 1.5 mg at night continue to hold off on Seroquel and trazodone Increase fluoxetine to 20 mg daily
[2017-12-30 11:52] VITALS: BP 103/66
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
[2017-12-30 16:00] VITALS: BP 102/65
[2017-12-30 20:10] VITALS: BP 114/68
[2017-12-30 21:56] VITALS: BP 106/64
[2017-12-31 07:34] VITALS: BP 107/58
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
[2017-12-31 12:06] VITALS: BP 106/65
[2017-12-31 15:42] VITALS: BP 93/62
[2017-12-31 19:41] VITALS: BP 119/73
[2017-12-31 21:25] VITALS: BP 114/61
--- NOTE | 2018-01-01 07:44 | CP SOUTH PROGRESS NOTE PSYCH ---
Psych (Inpt) Progress Note Progress Note The treatment team discussed the patient's progress, treatment plan, and aftercare plans. Treatment team included social work, nursing staff, therapy staff, and psychiatrist. Vital Signs Date Time Temp Pulse Resp B/P 01/01 0812 97.5 88 18 114/58 01/01 0811 97.5 88 18 114/58 Mental Status Examination: The patient was alert and oriented to time, place, and person. She reported that she slept better last night. She was calm and cooperative. She showed normal psychomotor activity, no abnormal movements, and no tremors. Her speech was normal/not pressured, not slurred. She reported that she is in a "good" mood today. She showed bright affect. She reported that she's been feeling less overwhelmed and less irritable. She denied thoughts of suicide. She denied thoughts of violence and denied thoughts of homicide. She denied hallucinations, denied feeling paranoid, and there were no delusions during the interview. Pt. was coherent, seemed to have reasonable insight and judgment. She did not seem to have any major difficulties with attention and concentration. No evidence of short-term memory impairment. Assessment: A 37-year-old single white female who presented from the medical floor following her detoxification from alcohol the patient has been feeling overwhelmed agitated and irritable. she was equivocal when it came to thoughts of suicide. Gastric bypass, SVT, Mary Lou's thyroiditis, Adrenal insufficiency on prednisone PPhx PTSD, alcohol use disorder with multiple detoxes, history DTs and seizure, She has a hx of suicide attempts by OD on pills with intoxicated. She is showing significant improvement in mood and currently denying thoughts of suicide. Diagnoses: Unspecified Depressive disorder Alcohol use disorder Rule out neurocognitive disorder due to multiple concussions Treatment Plan: D/C home Treatment Plan: Resume Seroquel at a lower dose (75 mg at bedtime) (only today did I become aware that she was on 100 mg Seroquel by her PCP for over 2 years) Continue Ativan 1 mg at night when necessary gabapentin 600 mg every 4 hours as needed for anxiety and irritability agitation or insomnia Continue fluoxetine 20 mg daily
[2018-01-01 07:50] VITALS: BP 114/58
[2018-01-01 12:14] VITALS: BP 94/58
[2018-01-01] MEDS ORDERED: QUETIAPINE FUMA25 M1 PO (15:33)
[2018-01-01] MEDS ORDERED: GABAPENTIN300 M2 PO (15:33)
[2018-01-01] MEDS ORDERED: FLUOXETINE HCL20 M2 PO (15:33)
--- NOTE | 2018-01-01 15:44 | Patient Discharge Instructions ---
Psych Discharge Inst General Discharge Information Reason for Admission: suspicion of thoughts opf suicide Psy Discharge Primary Diag+ Unspecified Depressive DO Psy Discharge Secondary Diag+ Alcohol Use Disorder Summary Tests/Major Procedures no significant Studies Pending at DC: none Patient Instructions Contact Information Your Psychiatrist on [facility] was Scot Koehler MD * If you are experiencing an emergency related to this hospitalization, please call [phone] to contact the treating psychiatrist or the psychiatrist-on- call. * To Request a copy of your medical records, please contact the Medical Records Department at [phone]. * To request results of studies pending at the time of discharge, please call [phone]. * Continue your Medications until directed to stop by your Healthcare provider. General Medication Information Please continue to take your new medications and your continued home medications , unless otherwise indicated on your discharge medication list, or unless directed by your MD or SUPERVISOR BINDERY to stop them. Special Instructions Diet Other (Bariatric) Activity Normal - Tobacco Use Treatment Offered Post DC Medications Offered: Not Applicable Post DC Tobacco Treatment Plan: Not Applicable - EtOH/Drug Use D/O Treatment Offered Post DC Medications Offered: Script Given-See Med List Post DC EtOH/SubAbuse TX Plan: Other SubAbuse/Dual Pgm Metabolic Screening Patient on a neuroleptic(s) . Enter below results for Hemoglobin A1C, and lipid panel if obtained during the last 365 days. BMI: Blood Pressure: 94/58 Laboratory Results From [place] EHR (If applicable): No done Advance Directives Does the Patient have Medical Advance Directives Yes/Copy not provided Does Pt have Psychiatric Advance Directives? No/Refused further info Does Patient have a Designated Surrogate Decision Maker: No Information About Psychiatric Advance Directives Provided? Refused Discharge Plan Post Hospital Treatment Plan: Dual IOP
[2018-01-01] MEDS ORDERED: LEVOTHYROXINE75 MCG PO (16:40)
[2018-01-01] MEDS ORDERED: SYNTHROID50 MCG PO (16:40)
[2018-01-01] MEDS ORDERED: ATIVAN0.5 M1 PO (16:50)
--- NOTE | 2018-01-01 17:25 | SOCIAL WORKER PROG NOTE PSYCH ---
Social Work Progress Note Progress Note This caption writer met with patient. She discussed feeling ready to discharge from [facility] and would like to attend [facility] as well as individual therapy with a therapist at [place]. Patient denied SI/HI/AH/VH and identified a safety plan to "call my sponsor, my friends and my parents." She was agreeable to utilizing crisis numbers and warm lines which she would be provided with upon discharge. Patient stated that she also plans to attend 3-4 AA meetings per week. 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 Patient stated that she will be going to a wedding this weekend with her family. She did not identify any concerns regarding alcohol use during this event as it is a "bring your own [alcohol]" and that people will be "watching me like a hawk" since her family knows about her use, treatment and this hospitalization. This caption writer encouraged her to identify a plan with her parents in the event that she feels triggered to use. This caption writer also suggested that the patient identify AA meetings in the area where she will be staying/attending the wedding. Patient inquired about being able to take pain medication regarinding [facility] policy if needed following a dentist appointment tomorrow. This caption writer spoke with Hawa Schmidt. Patient may attend the IOP intake, however, encouraged patient to consider the possible ramifications should she take narcotics. This was relayed to both Dr. Koehler and the patient. This caption writer spoke with Ernie Wen LCSW at [place] and, per patient, inquried about a female therapist that treats trauma as well as addiction. An appointment has been scheduled for 01/03/18 with Marjan Gates LCSW for 6pm. Ernie was informed that the patient will also be attending [facility] and does not yet have an intake appointment or know the track schedule she will be attending. He was agreeable to the patient contacting him should she need to change the appointment. This caption writer and Janie (medical student) met with the patient and her family for a family meeting. Dr. Koehler was unable to attend as the patient's parent's were late (meeting was scheduled for 3pm, but began at 3:40pm). Her parents were informed that they could speak with Dr. Gharaibeh by phone tomorrow should they have any questions. Patient's father and mother discussed changes in patient's presentation during last ER visit compared to previous ones. They stated that she was more irritable and more paranoid. Regarding paranoia, patient's father explained how patient expressed concerns that other patients in the ER were a threat (i.e. patient believed that a patient with a bloody hand who was holding an ice pack was holding a knife) and that she was being watched. Patient's parents stated that they were very interested in discussing discharge plans during this family meeting. They were informed that patient was not agreeable to inpatient/rehab and that an intake with [facility] would be scheduled as well as the individual therapy appointment with Je Rodas. Patient stated that if rehab is needed after attempting this outpatient treatment plan, she would be agreeable to it. Patient's parents were not agreeable to allowing her to drive due to concerns that she would buy alcohol. Appointments were reviewed and patient's parents were agreeable to providing transportation to the dentist appointment tomorrow, the IOP intake (and upcoming groups) as well as the individual therapy appointments. Patient's safety plan was also reviewed including that patient will be provided with crisis numbers and warm lines numbers. Patient's parents did not identify any safety concerns about the patient discharging today. Patient stated that she would contact her insurance information to inquire about whether they will cover an IOP intake and individual therapy session in the same day. She will call Ernie Wen if a change in the appointment is needed. Faxed Referral(s) 1 Referred To: IOP Transition of Care Documents sent: Health Summary Faxed to: IOP Fax #: [phone] Faxed by: Jonna NEUMANNW Date faxed: 01/01/18 Time Faxed: [phone] Faxed Referral(s) 2 Referred To: [facility] Transition of Care Documents sent: Health Summary Faxed to: [facility] - Marjan Gates LCSW Fax #: [phone] Faxed by: Jonna Lambert LCSW Date faxed: 01/01/18 Time Faxed: [phone]
--- NOTE | 2018-01-01 17:43 | SOCIAL WORKER PROG NOTE PSYCH ---
Social Work Progress Note Faxed Referral(s) Referred To: [facility] Transition of Care Documents sent: TRANSFER SUMMARY Faxed to: [facility] Fax #: [phone] Faxed by: RAVI DANIELLE LCSW Date faxed: 01/01/18 Time Faxed: [phone]
--- NOTE | 2018-01-02 12:35 | DISCHARGE SUMMARY REPORT-PSYCH ---
Visit Information Visit Dates/Diagnosis' Admission Date: 12/28/17 Discharge Date: 01/01/18 Reason for Admission: suspicion of thoughts opf suicide Psy Discharge Primary Diag: Unspecified Depressive DO Psy Discharge Secondary Diag: Alcohol Use Disorder Hospital Course Course Allergies: Coded Allergies: amoxicillin (Severe, HIVES 12/22/17) clonidine (Severe, SHORTNESS OF BREATH 12/22/17) esomeprazole (From NEXIUM) (Severe, HIVES 12/22/17) ketorolac (From TORADOL) (Severe, HIVES 12/22/17) adhesive (RASH 12/22/17) dicyclomine (From BENTYL) (HIVES 12/22/17) doxycycline (NAUSEA 12/22/17) Hospital Course/TX Response: The treatment team discussed the patient's progress, treatment plan, and aftercare plans. Treatment team included social work, nursing staff, therapy staff, and psychiatrist. Vital Signs Date Time Temp Pulse Resp B/P 01/01 0812 97.5 88 18 114/58 01/01 0811 97.5 88 18 114/58 Mental Status Examination: The patient was alert and oriented to time, place, and person. She reported that she slept better last night. She was calm and cooperative. She showed normal psychomotor activity, no abnormal movements, and no tremors. Her speech was normal/not pressured, not slurred. She reported that she is in a "good" mood today. She showed bright affect. She reported that she's been feeling less overwhelmed and less irritable. She denied thoughts of suicide. She denied thoughts of violence and denied thoughts of homicide. She denied hallucinations, denied feeling paranoid, and there were no delusions during the interview. Pt. was coherent, seemed to have reasonable insight and judgment. She did not seem to have any major difficulties with attention and concentration. No evidence of short-term memory impairment. Assessment: A 37-year-old single white female who presented from the medical floor following her detoxification from alcohol the patient has been feeling overwhelmed agitated and irritable. she was equivocal when it came to thoughts of suicide. Gastric bypass, SVT, Mary Lou's thyroiditis, Adrenal insufficiency on prednisone PPhx PTSD, alcohol use disorder with multiple detoxes, history DTs and seizure, She has a hx of suicide attempts by OD on pills with intoxicated. She is showing significant improvement in mood and currently denying thoughts of suicide. Diagnoses: Unspecified Depressive disorder Alcohol use disorder Rule out neurocognitive disorder due to multiple concussions Treatment Plan: D/C home Discharge HBIPS - Tobacco Use Treatment Offered - EtOH/Drug Use D/O Treatment Offered Metabolic Screening - Screen if on a Neuroleptic Medication - Metabolic screening should include: - Blood Pressure, BMI, Glucose or Hgb A1c, & a - Lipid profile from within the past 365 days. Discharge Instructions General Discharge Information Discharge Diet Other (Bariatric) Discharge Activity Normal Referrals Ordered Referrals Provider Referral 01/02/18 For Providers: [[facility]] For Groups: [Intensive Outpatient] [facility] [address], [place] [phone] Intake Appointment: 01/03/18, at 1:15pm Provider Referral 01/03/18 For Providers: [Marjan Gates LCSW] For Groups: [[facility]] Marjan Gates LCSW [facility] [address] [place], [place] [phone] Appointment: 01/03/18, at 6pm with Marjan Prescriptions Stop taking the following medications: Quetiapine Fumarate (Seroquel) 100 MG TABLET ORAL Every night Trazodone HCl (Trazodone HCl) 50 MG TABLET ORAL Every night Codeine Phosphate/Guaifenesi (Guaifenesin AC Cough Syrup) 10 MG-100 MG/5 ML LIQUID ORAL 4XW Gabapentin (Neurontin) 100 MG CAPSULE ORAL THREE TIMES DAILY Qty = 30 Prazosin HCl (Prazosin HCl) 1 MG CAPSULE ORAL AT BEDTIME Qty = 30 Fluoxetine HCl (Fluoxetine HCl) 10 MG CAPSULE ORAL DAILY Qty = 30 Quetiapine Fumarate (Quetiapine Fumarate) 25 MG TABLET ORAL THREE TIMES A DAY NEEDED as needed for ANXIETY Qty = 30 Continue taking these medications: Montelukast Sodium (Montelukast Sodium) 10 MG TABLET 1 Tablet ORAL DAILY Comments: Last Taken:01/01/18 Time:9am Hydrocortisone (Hydrocortisone) 10 MG TABLET 1 Tablet ORAL DAILY Comments: Last Taken:01/01/18 Time:9am Albuterol Sulfate (Proventil Hfa) 90 MCG HFA.AER.AD 2 Puff Inhale through mouth Every 4 hours as needed for BREATHING Comments: NOT GIVEN IN HOSPITAL Lansoprazole (Prevacid) 30 MG CAPSULE.DR 1 Capsule ORAL DAILY Comments: substituted with prilosec in hospital Last Taken:01/01/18 Time:7am Tamsulosin HCl (Flomax) 0.4 MG CAP.ER.24H 1 Capsule ORAL DAILY Comments: Last Taken:01/01/18 Time:9am Multivitamin (One Daily Multivitamin) 1 EACH TABLET 1 Tablet ORAL DAILY Qty = 30 Instructions: . Comments: Last Taken:01/01/18 Time:9am Propranolol HCl (Propranolol HCl) 60 MG TABLET 1 Tablet ORAL TWICE DAILY Qty = 30 Comments: Last Taken:01/01/18 Time:9am Bisacodyl (Dulcolax) 5 MG TABLET.DR 1 Tablet ORAL DAILY as needed for constipation Qty = 15 Comments: not given during this admission Estrogen,Con/M-Progest Acet (Prempro 0.625-2.5 MG Tablet) 0.625 MG-2.5 MG TABLET 1 Tablet ORAL DAILY Comments: Last Taken:01/01/18 Time:9am Start taking the following new medications: Gabapentin (Gabapentin) 300 MG CAPSULE 600 Milligram ORAL EVERY 4 HOURS NEEDED as needed for anxiety or insomnia Qty = 60 No Refills Comments: Last Taken:01/01/18 Time:5pm Fluoxetine HCl (Fluoxetine HCl) 20 MG CAPSULE 20 Milligram ORAL DAILY @8 AM Qty = 30 No Refills Comments: Last Taken:01/01/18 Time:9am Quetiapine Fumarate (Quetiapine Fumarate) 25 MG TABLET 75 Milligram ORAL 2000 Qty = 90 No Refills Comments: Last Taken:12/31/17 Time:10pm Lorazepam (Ativan) 0.5 MG TABLET 0.5 Milligram ORAL AT BEDTIME Qty = 3 No Refills The following medications have been changed: Old: Levothyroxine Sodium (Levothyroxine Sodium) 75 MCG TABLET 1 Tablet ORAL DAILY New: Levothyroxine Sodium (Levothyroxine Sodium) 75 MCG TABLET 1 Tablet ORAL SEE INSTRUCTIONS Qty = 1 Instructions: 1 Tab daily on Mon and Monday Comments: Last Taken:01/01/18 Time:7am Old: Levothyroxine Sodium (Synthroid) 50 MCG TABLET 1 Tablet ORAL DAILY New: Levothyroxine Sodium (Synthroid) 50 MCG TABLET 1 Tablet ORAL SEE INSTRUCTIONS Qty = 1 Instructions: take monday-monday Comments: Last Taken:01/01/18 Time:7am Studies Pending at Discharge none
== END 2018-01-01 17:22 | DRG 754 ==
LOC: CP SOUTH 12:05
DX: F32.9 Major depressive disorder, single episode, unspecified (principal); F10.10 Alcohol abuse, uncomplicated
CPT/HCPCS: 86618; 36415; J3490